=== PATIENT | female | born 1935 | race Caucasian/White ===

== ENCOUNTER → 2023-12-26 07:47 | Outpatient (REF) | payer MEDICARE, SELFPAY ==
[2023-12-26 08:38] LABS: % Basophils 0.6 % (0-2); % Eosinophils 6.4 % (0-6); % Immature Granulocytes 0.3 % (0-0.5); % Lymphocytes 32.2 % (20.5-51.1); % Monocytes 6.7 % (1.7-9.3); % Neutrophils 53.8 % (42.2-75.2); Absolute Eosinophils 0.4 10^3/uL (0-0.7); Absolute Lymphocytes 2.1 10^3/uL (1.2-3.4); Absolute Monocytes 0.4 10^3/uL (0.1-0.6); Absolute Neutrophils 3.4 10^3/uL (1.4-6.5); Hematocrit 48.1 % (37.0-47.0); Hemoglobin 15.9 g/dL (12.0-16.0); Mean Corp Hgb Conc. 33.1 g/dL (33.0-37.0); Mean Corpuscular Hgb 28.9 pg (27.0-31.0); Mean Corpuscular Volume 87.5 fL (81.0-99.0); Mean Platelet Volume 10.3 fL (7.4-10.4); Nucleated Red Blood Cells % 0 %; Platelet Count 232 10^3/uL (130-400); Red Cell Dist. Width 14.2 % (11.5-14.5); White Blood Cell Count 6.4 10^3/uL (4.8-10.8)
[2023-12-26 09:09] LABS: ALT (SGPT) 30 U/L (0-35); AST (SGOT) 38 U/L (14-36); Albumin 4.2 g/dl (3.5-5.0); Alkaline Phosphatase 95 U/L (38-126); Blood Urea Nitrogen 14 mg/dl (7-17); Calcium 9.4 mg/dl (8.4-10.2); Carbon Dioxide 25 mmol/L (22-30); Chloride 108 mmol/L (98-107); Glucose 105 mg/dl (70-99); Potassium 4.3 mmol/L (3.5-5.1); Sodium 141 mmol/L (135-145); Total Bilirubin 0.7 mg/dl (0.2-1.3); Total Protein 6.7 g/dl (6.3-8.2); eGFR > 60.00
== END ==
LOC: REG 07:47
PROVIDERS: ATTENDING PHYSICIAN Internal Medicine
DX: F03.90 Unspecified dementia, unspecified severity, without behavioral disturbance, psychotic disturbance, mood disturbance, and anxiety (principal); E03.9 Hypothyroidism, unspecified
CPT/HCPCS: 36415; 80053; 84443; 85025

== ENCOUNTER 2023-12-30 23:15 | Inpatient (IN) | payer MEDICARE, SELFPAY ==
[2023-12-30 21:07] VITALS: BMI 27.1
[2023-12-30 21:10] VITALS: BP 125/109
[2023-12-30 21:49] LABS: % Basophils 0.5 % (0-2); % Eosinophils 0.8 % (0-6); % Immature Granulocytes 0.3 % (0-0.5); % Lymphocytes 10.1 % (20.5-51.1); % Neutrophils 86.3 % (42.2-75.2); Absolute Basophils 0.1 10^3/uL (0-0.2); Absolute Eosinophils 0.1 10^3/uL (0-0.7); Absolute Lymphocytes 1.2 10^3/uL (1.2-3.4); Absolute Monocytes 0.2 10^3/uL (0.1-0.6); Absolute Neutrophils 9.9 10^3/uL (1.4-6.5); Hematocrit 44.7 % (37.0-47.0); Hemoglobin 15.4 g/dL (12.0-16.0); Mean Corp Hgb Conc. 34.5 g/dL (33.0-37.0); Mean Corpuscular Hgb 29.3 pg (27.0-31.0); Mean Corpuscular Volume 85.1 fL (81.0-99.0); Mean Platelet Volume 10.5 fL (7.4-10.4); Nucleated Red Blood Cells % 0 %; Platelet Count 202 10^3/uL (130-400); Red Blood Cell Count 5.25 10^6/uL (4.20-5.40); White Blood Cell Count 11.4 10^3/uL (4.8-10.8)
[2023-12-30 21:53] LABS: Urine Albumin Negative (Neg - Trace); Urine Bilirubin Negative (Negative); Urine Character Clear (Clear); Urine Color Yellow; Urine Glucose Negative (Negative); Urine Ketone Negative (Negative); Urine Leukocyte 2+ (Negative); Urine Nitrite Negative (Negative); Urine Occult Blood Negative (Negative); Urine Specific Gravity 1.015 (<1.030); Urine Urobilinogen Negative (Neg - 1+)
[2023-12-30 22:00] LABS: Lactic Acid 2.8 mmol/L (0.7-2.0)
[2023-12-30 22:02] VITALS: BP 92/75
[2023-12-30 22:06] LABS: ALT (SGPT) 31 U/L (0-35); AST (SGOT) 46 U/L (14-36); Alkaline Phosphatase 116 U/L (38-126); Blood Urea Nitrogen 16 mg/dl (7-17); Calcium 9.2 mg/dl (8.4-10.2); Carbon Dioxide 18 mmol/L (22-30); Chloride 105 mmol/L (98-107); Glucose 157 mg/dl (70-99); Potassium 3.9 mmol/L (3.5-5.1); Sodium 134 mmol/L (135-145); Total Bilirubin 0.6 mg/dl (0.2-1.3); Total Protein 6.4 g/dl (6.3-8.2); eGFR > 60.00
[2023-12-30 22:07] LABS: Urine Bacteria Few (Negative); Urine Red Blood Cell 0-2 /HPF (0-2); Urine Squamous Cell 16-20 /LPF (Few); Urine Urothelial Cell 0-2 /LPF (FEW); Urine White Cell 26-30 /HPF (0-5)
[2023-12-30 22:11] LABS: COVID-19 Antigen Negative (Negative)
[2023-12-30 22:16] LABS: NT-proBNP 3940 pg/ml; Troponin I 0.044 ng/ml
[2023-12-30] MEDS: ATIVAN 0.5 MG IV (22:21)
[2023-12-30] MEDS: MAXIPIME 1000 MG IV (22:22)
[2023-12-30] MEDS: NSS 1000 IV (22:32)
--- NOTE | 2023-12-30 22:40 | HPS.HSE ---
Family Physician
-
Family Physician:
Chief Complaint
-
Rigors, nausea, vomiting, hypoxia
History of Present Illness
88-year-old female from home by EMS complaining of nausea, vomiting and chills with temp of 99.8 acute onset at 815 this evening per . she was noted to be hypoxic at 83% on room air on arrival to ER. She has history of dementia advanced.
Her states she has not had any recent illness no cough, chest pain, abdominal pain, diarrhea, fever, urinary symptoms. He said sometimes she forgets and goes to the bathroom several times due to her dementia. She currently is resting
comfortably with 6 L of nasal cannula oxygen in place she denies headache or chest pain.
PMH colitis/diverticulitis October 2022, UTI, senile dementia with agitation behavioral disturbances, hypothyroidism, hypokalemia, former smoker quit over 30 years ago per
Medical History
Past Medical History
Past Medical History: Reports Other
Additional Past Medical History:
Senile Dementia with agitation behavioral disturbance
Hypothyroidism
colitis/diverticulitis October 2022
UTI's
former smoker quit over 30 years ago per
Past Surgical History: Reports Other
Additional Past Surgical History:
Cholecystectomy
MAGDALENA / BSO
Eye Surgery
Social History
Unable to obtain full social history at this time due to: Dementia
Tobacco: Former Smoker (Quit 30 years ago)
Alcohol: None
Drug: None
Personal:
Living: With Family ()
Employment: Retired
Family History
Family History: Unable to Obtain
Allergies / Home Medications
Allergies reflects when Allergies were last updated in [facility].
Home Medications with original date entered in [facility]
Allergy/Medication List:
Allergies
Allergy/AdvReac Type Severity Reaction Status Date / Time
No Known Allergies Allergy Unverified 11/19/17 09:27
Home Medications
levothyroxine 50 mcg tablet 50 mcg PO HS Thyroid 02/05/21
quetiapine 25 mg tablet 25 mg PO HS 12/30/23
Review of Systems
-
History Source: Patient and Family ( and son at bedside)
A 12 point ROS was completed and negative except as noted: Yes
Constitutional: Reports Chills
EENT: Denies Sore Throat or Runny Nose
Respiratory: Reports Other (Hypoxia); Denies Cough
Cardiac: Denies Chest Pain, Diaphoresis, Palpitations or Syncope
Abdomen/GI: Reports Nausea and Vomiting; Denies Abdominal Pain, Diarrhea, Constipated, Bloody Stools or Black Stools
: Denies Frequency, Flank Pain or Incontinence
Musculoskeletal: Denies Joint Pain or Edema
Skin: Denies Itching or Rash
Neurological: Denies Dizzy, Headache or Weakness
Endocrine: Reports No Symptoms
Hematologic/Lymphatic: Reports No Symptoms
Psych: Reports Calm
Physical Exam
Vital Signs
Vital Signs
Temp Pulse Resp BP Pulse Ox
99.8 F 113 15 125/109 93
12/30/23 21:10 12/30/23 21:10 12/30/23 21:10 12/30/23 21:10 12/30/23 21:53
Physical Exam
General: Comfortable and Conversant; No Pain or Fever
HEENT: NormoCephalic, Anicteric, PERRLA, [place] Conjunctivae, No Ptosis and Oxygen (6 L nasal cannula)
Respiratory: Clear; No Wheezes, Rales or Rhonchi
Cardiac: S1/S2 and Regular Rhythm; No Murmur, Rub, Gallop, Peripheral Edema or JVD
Breast: Deferred by me
GI: Soft, Non Tender, Non Distended, Normal Bowel Sounds and No Hepatosplenomegaly
Rectal: Deferred by Provider
Genito-urinary: No costovertebral tender
Musculoskeletal: No Clubbing, No Cyanosis and No Edema
Skin: Warm and Dry; No Rash or Jaundice
Neuro: Awake, Alert, Oriented (To name, and son but not year or history) and No Sensory Deficits; No Slurred Speech, Facial Droop, Tremors or Sedated
Psych: Calm
Laboratory Results
-
12/30/23 21:36
12/30/23 21:36
Laboratory Results
Lactic Acid 2.8 mmol/L (0.7-2.0) H 12/30/23 21:36
Total Bilirubin 0.6 mg/dl (0.2-1.3) 12/30/23 21:36
AST 46 U/L (14-36) H 12/30/23 21:36
ALT 31 U/L (0-35) 12/30/23 21:36
Alkaline Phosphatase 116 U/L (38-126) 12/30/23 21:36
Troponin I 0.044 ng/ml H* 12/30/23 21:42
Data Reviewed
-
Diagnostic Radiology: Report Reviewed by me
Lab Data: Labs Reviewed by me
Impression/Plan
-
Impression/plan:
Admit to IMU
#Acute hypoxic respiratory failure 2/2 possible new onset CHF, concern for possible PE versus PNA
83% RA, 93% 6 L nasal cannula
HR 113, 99.8 F, 125/109>106/64 post IV Ativan
BNP 3940
WBC 11.4 with left shift, lactic acid 2.8
COVID/flu negative-negative
-Follow urine culture, blood cultures x 2
-IV Lasix 20 mg now
-IV Rocephin, Zithromax
-CT PE study
-Follow CBC, CMP
CXR: No acute disease of the chest, moderate elevation right hemidiaphragm
#Nonischemic myocardial injury with new LBBB
Troponin 0.044, will trend
-Check 2D echo
EKG: Sinus tach 106 bpm, LBBB, QTc 520 MS in setting of LBBB
#Hx UTIs
UA positive leukocytes, WBC 26�30, few bacteria-asymptomatic
-Check urine culture
#History advanced dementia with agitation behavioral disturbances
Patient is oriented to name and son
-Patient got IV Ativan 0.5 mg in ER
-Continue Seroquel 25 mg at bedtime
-Fall precautions
#Hypothyroidism
-Continue levothyroxine 50 mcg at bedtime
Check TSH with free T4 reflex
#Hx colitis/diverticulitis October 2022
DNR per son at bedside
[2023-12-30 22:53] VITALS: BP 106/64
--- NOTE | 2023-12-30 22:54 | ED.GENMED ---
History of Present Illness
General
Chief Complaint: Breathing Problem
Source: patient, spouse, family and ambulance crew
Exam Limitations: dementia
Time Seen by Provider: 12/30/23 21:14
Travel History
Have you had any contact with someone who has COVID-19?: No
Do you have any symptoms of coronavirus? Fever > 100 degrees, chills, cough, shortness of breath, sore throat, loss of taste or smell, muscle aches, or headache?: No
History of Present Illness
History of Present Illness:
88-year-old female presents the emergency department complaining of nausea and vomiting, chills. Oxygen saturation 80% on room air. No oxygen use at home. She has dementia and history is limited.
Past History
Past History
ED Past Medical History: HTN, Hypothyroidism and Other (mild dementia)
ED Past Surgical History: Cholecystectomy, Gynecological (Hysterectomy) and Tonsilectomy
Social History
Tobacco: Non-smoker
Personal:
Living: with family
Review of Systems
Review of Systems
Allergies reviewed?: Yes
All Other Systems: Not applicable
Constitutional: Reports fever
EENT: Reports no symptoms
Respiratory: Reports no symptoms
Cardiac: Reports no symptoms
ABD/GI: Reports abdominal pain and vomiting
: Reports no symptoms
Musculoskeletal: Reports no symptoms
Skin: Reports no symptoms
Neurological: Reports no symptoms
Endocrine: Reports no symptoms
Hematologic/Lymphatic: Reports no symptoms
Psychiatric: Reports no symptoms
Phy Exam
Physical Exam
Physical Exam:
Physical Exam
General: Temperature 99.8
Neck: supple. no meningeal signs. normal posterior pharynx
Heart: s1/s2 tachycardia, no murmur. equal radial
pulses.
HEENT: Pupils equal round reactive to light, EOMI
Lungs: no acute respiratory distress. clear bilaterally
Abdomen: normal bowel sounds. not tender. no CVAT
Neuro: alert and oriented to person. no focal neurological deficits cranial nerves II through XII intact
Skin: no rash
Psychiatric: well kept. interactive and cooperative
Extremities: no edema. no calf tenderness. negative homans. good distal pulses
Scores
Heart Failure Risk
Heart Failure Risk Score: Yes
History of Stroke or TIA: No
History of intubation for respiratory distress: No
Heart rate on ED arrival >/= 110: Yes
SaO2 <90% on arrival on room air: Yes
HR >/=110 during 3min walk test (or too ill to perform test): Yes
ECG has acute ischemic changes: No
Urea >/=12mmol/L (BUN 33.6mg/dL): No
Serum CO2>/=35mmol/L: No
Troponin I or T elevated to AL Level (0.4mg/dL): No
NT-proBNP >/=5,000ng/L (5,000pg/ml): No
HF Risk Score: 3
Admission Status: HIGH RISK 15.9% Consider SNF treatment or admission to hospital
Course
Orders/Labs/Results
Orders:
Orders
12/30/23 21:16
Electrocardiogram (*1) Urgent
Reason for Study: Other
Other Reason for Exam: Possible Sepsis
Cardiac Monitoring- Treatment ONCE
EKG- Treatment ONCE
IV Insert/Care/Rem.- Treatment PRN
Straight cath- Treatment ONCE
O2 Therapy [RESP] Urgent
Titrate/Wean O2 to maintain O2 sat greater than (%): 93
Special Instructions: TO MAINTAIN CONTINUOUS O2 SATS > OR = 93%
Pulse Ox/cont/shift [RESP] Urgent
Quantity: 1
Special Instructions: CONTINUOUS
12/30/23 21:24
CR Chest Portable - 1 View Urgent
Comment:
Reason For Exam: fever, hypoxia
Reason Study Needs to be Portable: Patient Unstable
12/30/23 21:36
COVID-19 Antigen Urgent
Source: Nasal Swab
Complete Blood Count/With Diff Urgent
Comprehensive Metabolic Panel Urgent
Lactic Acid Q4H
Comment: ON ICE, CANCEL 2ND ORDER IF FIRST LACTIC ACID LEVEL <2
Urinalysis Reflex To Culture Urgent
Date Specimen was Collected: 12/30/23
Time Specimen was Collected: 21:16
Urine Microscopic Reflex Cult Urgent
Blood Culture Q30M
ALIE Source: Blood/Venous
Specimen Description:
Comment: FROM 2 SEPARATE SITES
Blood Culture Q30M
ALIE Source: Blood/Venous
Specimen Description:
Comment: FROM 2 SEPARATE SITES
Influenza A+B Rapid Molecular Urgent
ALIE Source: Nasal Swab
Specimen Description:
Urine Culture Urgent
ALIE Source: U
Specimen Description:
Date Specimen was Collected: 12/30/23
Time Specimen was Collected: 21:16
12/30/23 21:42
NT-proBNP Urgent
Troponin I Urgent
12/30/23 22:15
Cefepime HCl [Maxipime] 1,000 mg IV NOW STA
Lorazepam [Ativan] 0.5 mg IV NOW STA
12/30/23 22:23
0.9% Sodium Chloride 1000 ml [Nss] 1,000 ml IV BOLUS
12/30/23 23:00
Flush (0.9% Sodium Chloride) [Flush (Nss)] See Dose Instructions IV PER PROTOCOL
12/30/23 23:03
CT Chest Pe Study Urgent
Comment:
Reason For Exam: PE
Furosemide [Lasix] 20 mg IV NOW STA
12/30/23 23:04
Aspirin Chewable [Low Strength Aspirin] 324 mg PO NOW STA
12/30/23 23:15
Admit/Transfer Patient As Directed
Co-Sign Provider:
Level of Care: Inpatient admission
Assign to:: IMU- Intermediate Care
Physician / Group: victor manuel ceballos
Diagnosis: hypoxic resp failure concern new chf/poss asp pna, new LBBb, trop elev
Reason for Hospitalization: hypoxic resp failure concern new chf/poss asp pna, new LBBb, trop elev
Expected length of stay greater than two midnights?: Yes
ELOS- Estimated Length of Stay in days: 4
I certify the patient meets the requirements for IP care: Yes
Code Status As Directed
Resuscitation Status: Do not resuscitate
Reached after discussion with pt or family/Healthcare POA: Yes
Based on pt advanced directive or healthcare POA form: Yes
Decision communicated with: Per son at bedside
DNR Bracelet Application ONCE
12/30/23 23:16
Azithromycin 500 mg/250 ml [Zithromax Infusion] 500 mg in 250 ml IV NOW
12/31/23 00:00
Troponin I Q6H
12/31/23 01:30
Lactic Acid Q4H
Comment: ON ICE, CANCEL 2ND ORDER IF FIRST LACTIC ACID LEVEL <2
12/31/23 06:00
EKG [Electrocardiogram (*1)] IN AM
Reason for Study: Abnormal EKG
Echo 2D MMode Color/Doppler IN AM
Reason for Study: hypoxia ? chf
Lipid Profile [Cardiovascular Evaluation] IN AM
TSH Reflex To Free T4 IN AM
Troponin I Q6H
12/31/23 22:00
Azithromycin 500 mg/250 ml [Zithromax Infusion] 500 mg in 250 ml IV Q24H
Abnormal Lab Results
12/30/23 12/30/23
21:36 21:42
WBC 11.4 H 10^3/uL
(4.8-10.8)
MPV 10.5 H fL
(7.4-10.4)
Absolute Neuts (auto) 9.9 H 10^3/uL
(1.4-6.5)
Neutrophils % 86.3 H %
(42.2-75.2)
Lymphocytes % 10.1 L %
(20.5-51.1)
Sodium 134 L mmol/L
(135-145)
Carbon Dioxide 18 L mmol/L
(22-30)
Glucose 157 H mg/dl
(70-99)
Lactic Acid 2.8 H mmol/L
(0.7-2.0)
AST 46 H U/L
(14-36)
Troponin I 0.044 H* ng/ml
Leukocyte Esterase Rfl 2+ A
(Negative)
Urine WBC (Reflex) 26-30 A /HPF
(0-5)
Urine Bacteria (Reflex) Few A
(Negative)
12/30/23 21:36
12/30/23 21:36
Vital Signs
Initial and Last Documented VS:
Initial Vital Signs
Temp Pulse Resp BP Pulse Ox
99.8 F 113 15 125/109 83
12/30/23 21:10 12/30/23 21:10 12/30/23 21:10 12/30/23 21:10 12/30/23 21:10
Last Documented Vital Signs
Temp Pulse Resp BP Pulse Ox
99.8 F 113 15 125/109 93
12/30/23 21:10 12/30/23 21:10 12/30/23 21:10 12/30/23 21:10 12/30/23 21:53
MDM/Problems Addressed
Differential Diagnosis Includes:
Sepsis, pneumonia, CHF, UTI
MDM/Problems Addressed:
88-year-old female with nausea vomiting, UTI. Hypoxia, unclear etiology. Possibly related to underlying COPD. Admit to hospitalist.
Chronic conditions affecting care: HTN
Acute Exacerbation and/or Progression of Chronic Illness: HTN
*Radiology
Radiology exam reviewed: radiology read reviewed (Chest x-ray no acute findings)
*Pulse Oximetry
Patient hypoxic: yes
*EKG
Interpreted by ED Provider?: Yes
EKG Intrepretation Date: 12/30/23
EKG Intrepretation Time: 21:38
Interpretation: abnormal
Comparison EKG: changes noted
Heart Rate: 106
Rate: tachycardiac
Rhythm: sinus
Abbott: left axis deviation
Interval: normal interval
QRS Pattern: left bundle branch block
Ischemia: no ischemia
*Real Estate Specialist Interpretation
Rate: tachycardiac
Interpretation: abnormal
Heart Rate: 102
Rhythm: sinus tachycardia
*Critical Care Note
Total Time (30-74mins, 75-104mins- exclusive of procedures): Not Applicable
Data Reviewed
Review of Other/Old Records Reveals: Labs (no prior bnp)
Patient Management
Social determinants of health affecting care: Living situation and Strong social support
Discussion with other providers: Hospitalist
Escalation/DeEscalation of care consider admission/obs:
admit indicated
ED Attending Note
-
Portions of this chart may have been created with voice recognition software.� Occasional wrong word or��sound alike� substitutions may have occurred due to the inherent limitations of voice recognition software.
Discharge Plan
Departure
Patient Disposition: Admit
Date of Disposition: 12/30/23
Time of Disposition: 22:25
Admit to: IMU
Presentation/result/management discussed w/ accepting MD/DO: Hospitalist
Patient with high blood pressure during this ER visit?: No
Condition: Fair
Discharge Problem:
Urinary tract infection, Hypoxia
Prescriptions:
No Action
levothyroxine 50 MCG tablet
50 mcg PO HS
quetiapine 25 mg tablet
25 mg PO HS
Interventions
Interventions:
ED- Fall Risk Assessment Last Done: 12/30/23 21:55
ED- Cardiac Assessment Last Done: 12/30/23 21:55
ED- Pulmonary Assessment Last Done: 12/30/23 21:53
Discharge Date and Time
Print Language: LAO
[2023-12-30 23:00] VITALS: BP 108/62
[2023-12-30] MEDS: LASIX 20 MG IV (23:44)
[2023-12-30] MEDS: LOW STRENGTH ASPIRIN 324 MG PO (23:44)
[2023-12-30] MEDS: ZITHROMAX INFUSION 250 IV (23:45)
[2023-12-31] VITALS (39 sets, daily range): BP systolic 65–142; BP diastolic 46–88
--- NOTE | 2023-12-31 00:59 | W.PN.UPDATE ---
Update Note
Progress Note Update
This is a 78-year-old with past medical history significant for dementia, hypothyroidism, behavioral disturbance, hypertension who developed chills,nausea and one episode of vomiting just hours prior to coming to ED. She had otherwise been in usual
state of health. Recently started quetiapine but otherwise no other changes. Given dementia, patient unable to provide history. Per family is mostly bed bound but is alert and communicative. No recent episodes of dizziness, falls, lower
extremity swelling or shortness of breath. No known sick contacts. Former smoker, quit over 30 years ago. No prior admissions for COPD.
Low grade temps in ED, she was markedly hypoxic requiring 6 L NC. Hemodynamically stable and alert. ECG with new LBBB and trop is abnormal at 0.4. Chest Xray without infiltrates or clear edema. BNP is elevated over 3000. There is slight
leukocytosis and mild lactic acidosis. Given 1 L NS in ED. Suspected to have UTI. negative COVID and influenza.
Hypoxia - With low grade temps and acute hypoxia, suspect early pneumonia not seen on xray yet. Cannot rule out PE. Obtain CT PE. Start Ceftriaxone/Azithromycin. Check procalcitonin. Supportive care with supplemental oxygen. She is alert and
communicative shows no signs of hypercarbic respiratory failure.
Trop Elevation - Trop 0.04. Elevated BNP. New Left bundle. No chest pain. NSTEMI vs demand ischemia in setting of hypoxia. Aspirin 324 x 1, cycle enzymes, telemetry. Heparin for rising trop while pending CT/PE. Echo and cardiology consult in
am.
CHF - possible CHF with elevated trop and hypoxia. Xray without pulmonary edema and no jvd or peripheral edema on exam. CT chest as above. Trial of lasix 20mg iv x 1. Echo in am. Cardiology consult.
Dementia - continue seroquel for now. Given ativan in ED which appeared to have helped
UTI - u/a is equivocal with numerous squamous cells likey contaminated. Repeat u/a for clean sample and send for urine cultures. Blood cultures if she spikes a fever.
DNR/DNI
[2023-12-31] MEDS: SEROQUEL 25 MG PO ×2 (01:34→20:00)
[2023-12-31] MEDS: NSS (PRESERVATIVE FREE) 0.25 ML IV (01:34)
[2023-12-31] MEDS: ATIVAN 0.5 MG IV (01:34)
[2023-12-31 02:21] LABS: Lactic Acid 0.8 mmol/L (0.7-2.0)
[2023-12-31] MEDS: HEPARIN 25000 UNITS/250 ML IV (03:02)
--- NOTE | 2023-12-31 03:20 | ED TECH ---
POST VOID BLADDER SCAN 477ml AT 0321 12/31/23.
--- NOTE | 2023-12-31 03:38 | EDRN ---
Patient had climbed out of the bed while both siderails were up. Patient had taken off diaper, purwick, gown, and all equipment except the heart monitor. Patient incontinent of large amount of urine in diaper and floor as assisting patient to the
bathroom unable to hold bladder. Cleaned the patient and changed the linens and gown. Warm blankets provided. Patient fell asleep immediately
[2023-12-31 03:50] LABS: APTT 27.7 Sec (23.4-35.0)
[2023-12-31] MEDS: NSS 250 IV (04:22)
[2023-12-31 06:25] LABS: % Basophils 0.7 % (0-2); % Eosinophils 0.4 % (0-6); % Immature Granulocytes 0.4 % (0-0.5); % Lymphocytes 22.6 % (20.5-51.1); % Monocytes 7.6 % (1.7-9.3); % Neutrophils 68.3 % (42.2-75.2); Absolute Lymphocytes 1.2 10^3/uL (1.2-3.4); Absolute Monocytes 0.4 10^3/uL (0.1-0.6); Absolute Neutrophils 3.7 10^3/uL (1.4-6.5); Mean Corp Hgb Conc. 34.2 g/dL (33.0-37.0); Mean Corpuscular Hgb 29.7 pg (27.0-31.0); Mean Platelet Volume 10.4 fL (7.4-10.4); Nucleated Red Blood Cells % 0 %; Platelet Count 175 10^3/uL (130-400); Red Blood Cell Count 4.37 10^6/uL (4.20-5.40); Red Cell Dist. Width 14.3 % (11.5-14.5); White Blood Cell Count 5.4 10^3/uL (4.8-10.8)
[2023-12-31 07:17] LABS: TSH Reflex To Free T4 0.64 uIU/ml (0.47-4.68)
[2023-12-31 07:29] LABS: APTT > 200 Sec (23.4-35.0)
[2023-12-31] MEDS: ROCEPHIN 2000 MG IV (09:05)
[2023-12-31] MEDS: STERILE WATER FOR INJECTION 20 ML IV (09:05)
[2023-12-31 09:27] LABS: ALT (SGPT) 35 U/L (0-35); AST (SGOT) 54 U/L (14-36); Alkaline Phosphatase 78 U/L (38-126); Blood Urea Nitrogen 13 mg/dl (7-17); Calcium 7.6 mg/dl (8.4-10.2); Carbon Dioxide 23 mmol/L (22-30); Chloride 110 mmol/L (98-107); Estimated Creatinine Clearance 44 ml/min; Glucose 108 mg/dl (70-99); HDL Cholesterol 38 mg/dl; LDL Cholesterol, Calculated 50 mg/dl; Potassium 3.8 mmol/L (3.5-5.1); Sodium 136 mmol/L (135-145); Total Bilirubin 0.5 mg/dl (0.2-1.3); Total Cholesterol 102 mg/dl (50-199); Total Protein 5.3 g/dl (6.3-8.2); Triglyceride 70 mg/dl (10-149); Very Low Density Lipoprotein 14 mg/dl (0-30); eGFR > 60.00
--- NOTE | 2023-12-31 09:36 | PTCARENOTE ---
Patient admitted to ICU as IMU overflow. Patient is alert to person only, believes we are in school, very pleasant, cooperative. NSR with LBBB on the monitor. 98% on RA. Abdomen soft, non-tender. Patient assisted to BSC for elimination needs. Assist
x1. Heparin on hold per protocol. Patient offers no complaints at this time.
--- NOTE | 2023-12-31 10:41 | PTOTSP ---
Speech Therapy Assessment
Oral/pharyngeal swallow deemed within functional limits without overt signs of aspiration during bedside assessment
Recommend
1. Continue regular solids and thin liquids
2. Meds as tolerated.
3. Skilled ST not indicated
--- NOTE | 2023-12-31 11:59 | CON.CAR ---
Addendum entered and electronically signed by Brice Valadez MD 12/31/23 14:20:
88 yo female with advanced dementia, no cardiac history admitted with nausea, chills. Was also hypoxic. Being treated for sepsis, unclear source, possible UTI. Exam with RRR, no murmurs, no edema. EKG: NSR, LBBB (new). TnI peak 1.87.
We are consulted for elevated troponin and new LBBB. She has no chest pain, and confirms this. She is on ASA/heparin as we trend troponin, although I doubt ACS.
Possibly acute non-ischemic myocardial injury in setting of sepsis. We will check echo this admission.
Original Note:
Consultation
Consultation Request
Date/Time Consultation Requested: 12/31/2023 0800
Date/Time Consultation Performed: 12/31/2023 1130
Requesting Provider: Dr. Govea
Performing Provider:
Reason for Consultation: abnormal troponin
Medical History
-
Chief Complaint: nausea, vomiting, chills, hypoxia
History of Present Illness:
88-year-old woman with history of dementia who lives with her family who was brought to the emergency room with complaints of nausea vomiting and chills. In the emergency room she was noted to be hypoxic with a room air saturation of 83%. Patient
was initially placed on 6 L nasal cannula. O2 sats improved. Troponin was abnormal with a peak of 1.870. Patient also noted to have a left bundle branch block on EKG which was new since a previous EKG from 10/29/2022. Patient denies any
complaints of chest pain shortness of breath or palpitations. Cardiology is consulted for further evaluation. Patient currently denies any chest pain symptoms.
Past Medical History
Past Medical History: Other (Colitis/diverticulitis 10/2022, UTI, dementia with agitation behavioral disturbances, hypothyroidism, hypokalemia, )
Past Surgical History: Other (MAGDALENA/BSO, eye surgery, cholecystectomy per chart)
Social History
Tobacco: Former Smoker (Patient quit over 30 years ago per chart)
Alcohol: None
Family History
Family History: Unable to Obtain (Patient unsure)
Allergies / Home Medications
Allergy/AdvReac Type Severity Reaction Status Date / Time
No Known Allergies Allergy Unverified 07/10/17 09:27
�Medication �Instructions �Recorded �Confirmed �Type
levothyroxine 50 mcg tablet 50 mcg PO HS Thyroid 02/05/21 12/30/23 History
quetiapine 25 mg tablet 25 mg PO HS 12/30/23 12/30/23 History
Review of Systems
-
Unable to obtain full review of systems at this time due to: Dementia
History Source: Patient
Constitutional: No Symptoms
EENT: No Symptoms
Respiratory: No Symptoms
Cardiac: No Symptoms
Abdomen/GI: No Symptoms
Neurological: No Symptoms
Physical Exam
Vital Signs
Temp Pulse Resp BP Pulse Ox
99.8 F 72 23 99/58 98
12/30/23 21:10 12/31/23 09:02 12/31/23 09:02 12/31/23 08:00 12/31/23 09:34
Lab Results
12/31/23 06:08
12/31/23 06:08
Troponin I 1.870 ng/ml H* D 12/31/23 06:08
Pjo-E-Adtcrnxneru Pept 3940 pg/ml 12/30/23 21:42
Physical Exam
General: Well Developed, Well Nourished and No Apparent Distress
HEENT: Normocephalic and Moist Mucous Membranes
Respiratory: Crackles (bilat )
Cardiac: S1/S2 and Regular Rhythm
Breast: Deferred by me
GI: Soft, Non Distended and Normal Bowel Sounds
Musculoskeletal: No Edema
Skin: Warm and Dry
Neuro: Awake and Alert (forgetful)
Psych: Calm
Impression / Plan
-
Elevated troponin type unknown :
-In setting of new left bundle branch block. Patient currently asymptomatic.
-Update echocardiogram
-BP will likely limit beta-leta at this time. On IV heparin, add asa
-Continue to trend troponin.
-LDL 50
Left bundle branch block:
-New compared to prior EKGs from October 2022. Patient currently denies cardiac symptoms.
Hypoxia:
-Improving. CT of the chest without pulmonary embolus
-BNP was 3940, lasix was given.
-con't rales on exam , but hypoxia improved. Con't ,monitor need for further lasix .
Dementia:
-Per primary team
-
Hypothyroidism:
-On levothyroxine
Data Reviewed
-
EKG: Tracing Personally Visualized and interpreted (NSR 89 bpm, LBBB )
CT Scan: Report Reviewed by me (CT chest 12/31/23 No CTA evidence for an acute pulmonary thromboembolism. 2. Bilateral groundglass opacities favored to be secondary to hypoventilatory changes and atelectasis. 3. 8 mm solid pulmonary nodule in the
superior segment of the left lower lobe partially obscured by atelectasis. Recommend)
Labs: Labs Reviewed by me
--- NOTE | 2023-12-31 12:25 | W.PN.HOSP.TC ---
Today's Communication/Plan
-
monitor vitals
see plan
cw hep gtt
monitor o2 status
monitor BP
on Aspirin
cw abx for now
Son updated over the phone
Assessment / Plan
Assessment / Plan
General: Comfortable and Conversant; No Pain or Fever
HEENT: NormoCephalic, Anicteric, PERRLA
Respiratory: Clear; No Wheezes, Rales or Rhonchi
Cardiac: S1/S2 and Regular Rhythm
GI: Soft, Non Tender, Non Distended, Normal Bowel Sounds
Genito-urinary: No costovertebral tender
Musculoskeletal: No Edema
Neuro: Awake, Alert, Oriented (To name, and son but not year or history)
Psych: Calm
Acute hypoxic respiratory failure 2/2 possible atelectasis and NSTEMI
Initially required 6 L nasal cannula, now on room air
BNP 3940 however does not appear to be fluid overload; was liven IV Lasix on admission however patient went hypotensive
Lactic acidosis, now improved
COVID/flu negative-negative
-Follow urine culture, blood cultures x 2
-IV Rocephin, Zithromax for now
-CT PE study neg for PE; bilateral groundglass opacity with possible secondary to atelectasis. 8 mm solid pulmonary nodule in the superior segment of the left lower lobe. Repeat CT in 6 to 12 months.
-Follow CBC, CMP
Suspect severe sepsis secondary to urinary tract infection
Follow urine culture
Continued antibiotics
NSTEMI
trend trop
cw heparin gtt
cardiology evaluation
echo
Added aspirin
#Nonischemic myocardial injury with new LBBB
trop now 1.8
-Check 2D echo
EKG: Sinus tach 106 bpm, LBBB, QTc 520 MS in setting of LBBB
#Hx UTIs
UA positive leukocytes, WBC 26�30, few bacteria-asymptomatic
-Check urine culture
#History advanced dementia with agitation behavioral disturbances
Patient is oriented to name and son
-Continue Seroquel 25 mg at bedtime
-Fall precautions
#Hypothyroidism
-Continue levothyroxine 50 mcg at bedtime
#Hx colitis/diverticulitis October 2022
DVTppx
hep gtt
DNR per son at bedside
I spent a total of 52 minutes with the patient or on the floor. More than 50% of this time involved counseling and coordination of care.
Anticipated Discharge: > 48 hours
Subjective/Interval History
-
Date of Service: December 31, 2023
denies pain
Objective Data
-
Labs:
Laboratory Results
12/31/23 12/31/23 12/31/23
03:18 06:08 12:00
WBC 5.4
Hgb 13.0
Hct 38.0
Plt Count 175
APTT 27.7 > 200 H* Cancelled
Sodium 136
Potassium 3.8
Chloride 110 H
Carbon Dioxide 23
BUN 13
Creatinine 0.8
Glucose 108 H
Calcium 7.6 L D
Total Bilirubin 0.5
AST 54 H
ALT 35
Alkaline Phosphatase 78
12/31/23 12/31/23
16:00 18:00
WBC
Hgb
Hct
Plt Count
APTT Pending Cancelled
Sodium
Potassium
Chloride
Carbon Dioxide
BUN
Creatinine
Glucose
Calcium
Total Bilirubin
AST
ALT
Alkaline Phosphatase
Vital Signs:
Vital Signs
Temp Pulse Resp BP Pulse Ox
97.6 F 72 23 99/58 98
12/31/23 12:01 12/31/23 09:02 12/31/23 09:02 12/31/23 08:00 12/31/23 09:34
I&O
12/30/23 12/31/23 01/01/24
06:59 06:59 06:59
Intake Total 100 / 100
Balance 100 / 100
--- NOTE | 2023-12-31 12:37 | PTCARENOTE ---
Assessment largely unchanged. Patient resting comfortably in bed.
[2023-12-31] MEDS: LOW STRENGTH ASPIRIN 81 MG PO (13:55)
--- NOTE | 2023-12-31 14:25 | CM ---
CM following re: discharge planning.
Reviewed pt's chart, met with t and pt's Ed at bedside.
Pt is an 88 year old female, admitted with primary dx of Sepsis secondary to UTI.
Pt is not a great historian due to Dementia, information obtained from pt's . Pt and spouse live in a split level home with threshold step to enter. Enter to rec room where half bath is located, 4 steps up to kitchen and living room level,
9 steps up to bedroom and full bathroom level of home. Pt does not have DME and is independent with her ADLs with reminders and supervision. has DME (walker, spc and raised toilet seat with rails) from prior hip surgery, but none of this
is in use currently. does all the driving and provides supervision at all times. Per pt was at [facility] and had [facility] in the past. Pt's stated he and his spouse have been for 64 years, have to children, son is a
Trauma MD Surgeon at [employer]. Per , pt's Dementia has been progressing, pt can be very difficult to manage and he is learning how to address it. Useful approaches how to care for pt with Dementia discussed, information
provided and pt's stated that it is difficult for him to redirect her and when he approaching the pt directly, pt became agitated and 'nasty'. Per , as of December the of this year, pt started on Seroquel 25 mg at HS and per it
seems working.
Per , physically pt is independent with functional ability and she needs care/supervision due to impaired memory. Per , he feels that pt will return [place]ak hoe at discharge. Pt became agitated a few times during interview, requesting 'go
home now!'.
PCP: Lupillo Mcintosh
Pharmacy: [facility] in [place]
D/C plan: Home with anticipated VN services vs no needs. Spouse to transport at discharge.
CM will follow with discharge plan updates as hospitalization progresses
--- NOTE | 2023-12-31 14:46 | PTCARENOTE ---
Patient downgraded to tele, report called to 3W RN. Patient transferred without issue.
[2023-12-31] MEDS: ZYPREXA ZYDIS (ORALLY DISINTEGRATING) 5 MG PO (15:16)
[2023-12-31 16:35] LABS: Procalcitonin 8.92 ng/ml (0.0-0.25)
[2023-12-31] MEDS: RISPERDAL M-TAB (ORALLY DISINTEGRATING) 0.5 MG PO (17:25)
[2023-12-31 18:50] LABS: APTT 22.6 Sec (23.4-35.0)
--- NOTE | 2023-12-31 19:30 | PTCARENOTE ---
Pt transferred to [facility] from [facility] in bed. Pt is confused, agitated, in B/L soft limb wrist restraints with med sitter. VSS. ST on the monitor. SYDNEE Campos notified and orders received. Pt given Seroquel and Ativan.
[2023-12-31] MEDS: ATIVAN 0.25 MG IV (19:49)
[2023-12-31] MEDS: NSS (PRESERVATIVE FREE) 0.125 ML IV (19:49)
[2023-12-31] MEDS: SYNTHROID 50 MCG PO (22:21)
[2023-12-31] MEDS: ZITHROMAX INFUSION 250 IV (22:21)
[2024-01-01] VITALS (7 sets, daily range): BP systolic 120–154; BP diastolic 74–93; PULSE 95–101; O2SAT 91
--- NOTE | 2024-01-01 01:30 | PTCARENOTE ---
Pt sleeping in intervals after medication administration. Pt remains in restraints with bed alarm and med sitter.
[2024-01-01 02:34] LABS: APTT 42.9 Sec (23.4-35.0)
--- NOTE | 2024-01-01 08:00 | PTCARENOTE ---
Pt recieved from ICU nurse with bilateral mitts on and in front of me was able to move her right hand and fingers in a way to tug at her IV on left hand. Pt was unable to redirect, pt agitated, confused, restless, angry. Pt swatted at this nurse
several times. MD aware and po zyprexia given as ordered. Pt placed on medsitter and bed alarm. I was unable to leave room. Pt found with legs on side of bed . legs placed back into bed, pt then found sitting straight up and leaning over the
bed to mess with IV pole. Then several minutes later, i found pt sitting straight up leaning over lthe right side of bed openin up all the closet doors. She was very unsafe. Md notified and bilateral wrist restraints ordered and applied. PO
risperidole ordered and given as per MD order. PT not relieved, Medsitter calling almost every 4 minutes for pt with unsafe conditions. Internally we placed pt on a one to one for better safety conditions, Md alerted and ordered a one to one.
Admission called and we were able to get pt a single room on another unit. Unit called and report given. two RNs and one tech transfered pt via bed with medsitter to 4th floor.
[2024-01-01] MEDS: LOW STRENGTH ASPIRIN 81 MG PO (08:47)
[2024-01-01] MEDS: STERILE WATER FOR INJECTION 20 ML IV (08:47)
[2024-01-01] MEDS: ROCEPHIN 2000 MG IV (08:47)
[2024-01-01 10:16] LABS: % Basophils 0.8 % (0-2); % Immature Granulocytes 0.2 % (0-0.5); % Lymphocytes 24.3 % (20.5-51.1); % Monocytes 7.3 % (1.7-9.3); % Neutrophils 66.4 % (42.2-75.2); Absolute Eosinophils 0.1 10^3/uL (0-0.7); Absolute Lymphocytes 1.3 10^3/uL (1.2-3.4); Absolute Monocytes 0.4 10^3/uL (0.1-0.6); Absolute Neutrophils 3.5 10^3/uL (1.4-6.5); Hemoglobin 14.7 g/dL (12.0-16.0); Mean Corpuscular Hgb 29.3 pg (27.0-31.0); Mean Corpuscular Volume 83.7 fL (81.0-99.0); Nucleated Red Blood Cells % 0 %; Red Blood Cell Count 5.02 10^6/uL (4.20-5.40); Red Cell Dist. Width 14.3 % (11.5-14.5); White Blood Cell Count 5.2 10^3/uL (4.8-10.8)
[2024-01-01 10:46] LABS: APTT 45.7 Sec (23.4-35.0)
[2024-01-01 10:53] LABS: Mean Platelet Volume 10.7 fL (7.4-10.4); Platelet Count 121 10^3/uL (130-400)
[2024-01-01 11:53] LABS: ALT (SGPT) 33 U/L (0-35); AST (SGOT) 61 U/L (14-36); Albumin 3.6 g/dl (3.5-5.0); Alkaline Phosphatase 76 U/L (38-126); Blood Urea Nitrogen 11 mg/dl (7-17); Calcium 8.6 mg/dl (8.4-10.2); Carbon Dioxide 27 mmol/L (22-30); Chloride 107 mmol/L (98-107); Estimated Creatinine Clearance 50 ml/min; Glucose 119 mg/dl (70-99); Potassium 3.5 mmol/L (3.5-5.1); Sodium 140 mmol/L (135-145); Total Bilirubin 0.4 mg/dl (0.2-1.3); Total Protein 6.1 g/dl (6.3-8.2); eGFR > 60.00
--- NOTE | 2024-01-01 11:54 | W.PN.HOSP.TC ---
Addendum entered and electronically signed by Juan Miguel Govea MD 01/01/24 13:30:
Son updated over the phone
Original Note:
Today's Communication/Plan
-
monitor vitals
see plan
follow urine cx
hep until ok with cardiology
echo
cw abx
psych to evaluate
monitor mental status
Assessment / Plan
Assessment / Plan
General: Comfortable and Conversant; No Pain or Fever
HEENT: NormoCephalic, Anicteric, PERRLA
Respiratory: Clear; No Wheezes, Rales or Rhonchi
Cardiac: S1/S2 and Regular Rhythm
GI: Soft, Non Tender, Non Distended, Normal Bowel Sounds
Genito-urinary: No costovertebral tender
Musculoskeletal: No Edema
Neuro: Awake, Alert
Psych: Calm
Acute hypoxic respiratory failure 2/2 possible atelectasis and NSTEMI
could be possible PNA given opacities on CT scan; procal +
Initially required 6 L nasal cannula, now on room air
BNP 3940 however does not appear to be fluid overload; was liven IV Lasix on admission however patient went hypotensive
Lactic acidosis, now improved
COVID/flu negative-negative
-Follow urine culture, blood cultures x 2
-IV Rocephin, Zithromax for now
-CT PE study neg for PE; bilateral groundglass opacity with possible secondary to atelectasis. 8 mm solid pulmonary nodule in the superior segment of the left lower lobe. Repeat CT in 6 to 12 months.
Suspect severe sepsis secondary to urinary tract infection and possible PNA
Follow urine culture
Continued antibiotics
NSTEMI vs non [place] related myocardial injury
new LBBB
trop peaked 1.8
cw heparin gtt until ok with cardiology
cardiology following
echo
Added aspirin
#History advanced dementia with agitation behavioral disturbances
no hx of trauma
suspect component of acute delirium as well
12/30 with agitation; was put on restraints
was given zyprexa,then risperidone and then ativan
psych eval
-Continue Seroquel 25 mg at bedtime
-Fall precautions
#Hypothyroidism
-Continue levothyroxine 50 mcg at bedtime
#Hx colitis/diverticulitis October 2022
DVTppx
hep gtt
DNR per son on admission
I spent a total of 53 minutes with the patient or on the floor. More than 50% of this time involved counseling and coordination of care.
Anticipated Discharge: > 48 hours
Subjective/Interval History
-
Date of Service: January 01, 2024
calm this mroning
Objective Data
-
Labs:
Laboratory Results
01/01/24 01/01/24 01/01/24
02:04 10:05 11:07
WBC 5.2
Hgb 14.7
Hct 42.0
Plt Count 121 L D
APTT 42.9 H 45.7 H
Sodium Cancelled 140
Potassium Cancelled 3.5
Chloride Cancelled 107
Carbon Dioxide Cancelled 27
BUN Cancelled 11
Creatinine Cancelled 0.7
Glucose Cancelled 119 H
Calcium Cancelled 8.6
Total Bilirubin Cancelled 0.4
AST Cancelled 61 H
ALT Cancelled 33
Alkaline Phosphatase Cancelled 76
Vital Signs:
Vital Signs
Temp Pulse Resp BP Pulse Ox
97.8 F 102 18 144/80 94
01/01/24 03:35 01/01/24 03:35 01/01/24 03:35 01/01/24 03:35 01/01/24 03:35
I&O
12/31/23 01/01/24 01/02/24
06:59 06:59 06:59
Intake Total 100 / 100 480 / 480
Balance / 480 / 480
--- NOTE | 2024-01-01 13:18 | CS.PSYCHR ---
Consult Summary - Psychiatry
-
Pt is 88 yo female brought in from home by EMS with reported nausea, vomiting and chills, onset of elevated temp 99.8 per . Pt noted to be hypoxic at 83% on room air on arrival to ED. Pt has hx of advanced dementia. Psychiatry asked to
evaluate due to agitation, tried on Zyprexa Zydis 5 mg, Risperidone 0.5 mg, Seroquel 25 mg and Ativan 0.25 mg IV, over the course of yesterday afternoon/evening. Pt noted to be confused, restless, angry, swatting at staff. QTc prolonged at 520,
515 on repeat EKG.
PMH colitis/diverticulitis October 2022, UTI, advanced dementia with agitation/behavioral disturbance, hypothyroidism, hypokalemia, former smoker quit over 30 years ago per
Psych Hx: unable to obtain, none noted apart from dementia. on Seroquel 25 mg HS
SH: lives with
MSE: alert, making eye contact, oriented only to self. No EPS evident. Mildly restless, states she is looking for her family in [place]. Unable to give an history due to dementia.
Imp: Dementia, advanced, with behavior disturbance
R/o superimposed delirium
Prolonged QTc
Rec: would continue with Risperidone and Ativan prn for agitation. could try adding Depakote, although pt has increased AST and low platelets- could be worsened on Depakote
Haldol is not advisable in setting on prolonged QTc. If pt is aggressive and refusing po meds, IM Zyprexa is still the best overall option
Can continue existing Seroquel 25 mg HS
Psychiatry will follow
--- NOTE | 2024-01-01 14:28 | W.PN.CD ---
Today's Communication / Plan
-
echo in AM
Impression / Plan
-
88 yo female with advanced dementia, no cardiac history, admitted with nausea, chills. Was also hypoxic. Being treated for sepsis, unclear source, possible UTI.
Sepsis: per primary team
Elevated troponin: peak 1.87
-In setting of new left bundle branch block. Patient currently asymptomatic. No chest pain.
-suspect acute non-ischemic myocardial injury in setting of sepsis.
-echo in AM
Left bundle branch block:
-New compared to prior EKGs from October 2022. Patient currently denies cardiac symptoms.
-echo
Dementia:
-Per primary team
-
Hypothyroidism:
-On levothyroxine
Physical Exam
Vital Signs/Labs
Vital Signs
Temp Pulse Resp BP Pulse Ox
97.7 F 101 20 139/84 91
01/01/24 07:16 01/01/24 07:16 01/01/24 07:16 01/01/24 07:16 01/01/24 07:16
12/31/23 01/01/24 01/02/24
06:59 06:59 06:59
Actual Weight 65 kg
01/01/24 10:05
01/01/24 11:07
APTT 45.7 Sec (23.4-35.0) H 01/01/24 10:05
Triglycerides 70 mg/dl (10-149) 12/31/23 06:08
LDL Cholesterol, Calc 50 mg/dl 12/31/23 06:08
VLDL Cholesterol, Calc 14 mg/dl (0-30) 12/31/23 06:08
HDL Cholesterol 38 mg/dl 12/31/23 06:08
12/30/23
21:42
Zyv-[id number]-Kprjuetyhfb Pept 3940
LAB Results
12/30/23 12/31/23 12/31/23
21:42 00:19 06:08
Troponin I 0.044 H* 1.150 H* D 1.870 H* D
12/31/23 12/31/23
12:08 12:33
Troponin I Cancelled 1.790 H*
Physical Exam
Constitutional: No acute distress and Comfortable
EENT: Moist mucous membranes
Cardiovascular: Rhythm & rate is regular, Pedal edema is absent, JVD pressure is normal and Systolic murmur absent
Respiratory: Respiratory effort normal and Lungs clear to auscul.
GI: Soft, Distention absent and Flat
Neuro/Psych: Alert
Data Reviewed
-
Date of Service: January 01, 2024
EKG: Other (Tele: SR/ST 90s-100s)
Labs: Labs Reviewed by me
[2024-01-01] MEDS: SEROQUEL 25 MG PO (21:22)
[2024-01-01] MEDS: ZITHROMAX INFUSION 250 IV (21:22)
[2024-01-01] MEDS: SYNTHROID 50 MCG PO (21:22)
[2024-01-02 03:01] VITALS: BP 115/73
[2024-01-02 07:30] VITALS: BP 133/70
[2024-01-02 07:38] LABS: % Basophils 0.8 % (0-2); % Eosinophils 4.1 % (0-6); % Immature Granulocytes 0.1 % (0-0.5); % Lymphocytes 21.9 % (20.5-51.1); % Monocytes 8.6 % (1.7-9.3); % Neutrophils 64.5 % (42.2-75.2); Absolute Basophils 0.1 10^3/uL (0-0.2); Absolute Eosinophils 0.3 10^3/uL (0-0.7); Absolute Lymphocytes 1.6 10^3/uL (1.2-3.4); Absolute Monocytes 0.6 10^3/uL (0.1-0.6); Absolute Neutrophils 4.6 10^3/uL (1.4-6.5); Hematocrit 41.7 % (37.0-47.0); Hemoglobin 14.5 g/dL (12.0-16.0); Mean Corp Hgb Conc. 34.8 g/dL (33.0-37.0); Mean Corpuscular Hgb 29.5 pg (27.0-31.0); Mean Corpuscular Volume 84.9 fL (81.0-99.0); Mean Platelet Volume 11.3 fL (7.4-10.4); Nucleated Red Blood Cells % 0 %; Platelet Count 165 10^3/uL (130-400); Red Blood Cell Count 4.91 10^6/uL (4.20-5.40); Red Cell Dist. Width 14.1 % (11.5-14.5); White Blood Cell Count 7.1 10^3/uL (4.8-10.8)
[2024-01-02 07:59] LABS: ALT (SGPT) 30 U/L (0-35); AST (SGOT) 53 U/L (14-36); Albumin 3.3 g/dl (3.5-5.0); Alkaline Phosphatase 74 U/L (38-126); Blood Urea Nitrogen 10 mg/dl (7-17); Calcium 8.5 mg/dl (8.4-10.2); Carbon Dioxide 23 mmol/L (22-30); Chloride 108 mmol/L (98-107); Estimated Creatinine Clearance 50 ml/min; Glucose 82 mg/dl (70-99); Potassium 3.3 mmol/L (3.5-5.1); Sodium 140 mmol/L (135-145); Total Bilirubin 0.6 mg/dl (0.2-1.3); Total Protein 5.7 g/dl (6.3-8.2); eGFR > 60.00
--- NOTE | 2024-01-02 08:08 | W.PN.CD ---
Addendum entered and electronically signed by Carlo Rock MD 01/02/24 10:03:
I saw and examined the patient.
The [employer] or PA's note was reviewed and I agree with the note.
hemodynamically stable. remain in await echo
No other new recommendations
Original Note:
Today's Communication / Plan
-
Echo today
Impression / Plan
-
BACKGROUND: 88F with advanced dementia, no cardiac history, admitted with nausea, chills. She was also hypoxic. Being treated for sepsis, unclear source, possible UTI.
Sepsis: per primary team
Elevated troponin: peak 1.87
-In setting of new left bundle branch block. Patient currently asymptomatic. No chest pain.
-suspect acute non-ischemic myocardial injury in setting of sepsis.
-Echo in AM
Left bundle branch block:
-New compared to prior EKGs from October 2022. Patient denied cardiac symptoms.
-Started on ASA by primary
-Echo today
Dementia: per primary team
Hypothyroidism: on levothyroxine
SUBJECTIVE:
Confused and restrained.
Physical Exam
Vital Signs/Labs
Vital Signs
Temp Pulse Resp BP Pulse Ox
98.1 F 81 18 115/73 95
01/02/24 03:01 01/02/24 03:01 01/02/24 03:01 01/02/24 03:01 01/02/24 03:01
01/02/24 06:34
01/02/24 06:34
APTT 45.7 Sec (23.4-35.0) H 01/01/24 10:05
Triglycerides 70 mg/dl (10-149) 12/31/23 06:08
LDL Cholesterol, Calc 50 mg/dl 12/31/23 06:08
VLDL Cholesterol, Calc 14 mg/dl (0-30) 12/31/23 06:08
HDL Cholesterol 38 mg/dl 12/31/23 06:08
12/30/23
21:42
Nds-S-Kgoiyufpstu Pept 3940
LAB Results
12/30/23 12/31/23 12/31/23
21:42 00:19 06:08
Troponin I 0.044 H* 1.150 H* D 1.870 H* D
12/31/23 12/31/23
12:08 12:33
Troponin I Cancelled 1.790 H*
Physical Exam
Constitutional: No acute distress and Comfortable
EENT: Anicteric and Moist mucous membranes
Cardiovascular: Rhythm & rate is regular, Pedal edema is absent, S1S2 is normal and Murmur/rub/gallop absent
Respiratory: Respiratory effort normal and Lungs clear to auscul.
GI: Soft, Distention absent, Flat, Non tender and Normal bowel sounds
Neuro/Psych: Other (confused)
Other: Skin (warm and dry without edema)
Data Reviewed
-
Date of Service: January 02, 2024
Labs: Labs Reviewed by me
Old Records: Reviewed
[2024-01-02] MEDS: ROCEPHIN 2000 MG IV (09:33)
[2024-01-02] MEDS: LOW STRENGTH ASPIRIN 81 MG PO (09:33)
[2024-01-02] MEDS: STERILE WATER FOR INJECTION 20 ML IV (09:34)
--- NOTE | 2024-01-02 11:05 | W.PN.HOSP.TC ---
Today's Communication/Plan
-
see bold
Assessment / Plan
Assessment / Plan
Gen: NAD, Awake and alert
Eyes: EOMI, PERRLA, no scleral icterus.
Neck: supple.
CV: RRR, +S1/S2, no m/r/g.
Resp: CTAB, no rales, wheezes, or rhonchi.
Abd: +BS, soft, NT, ND
Skin: No rashes.
Neuro: CN 2-12 intact, non-focal.
Psych: Normal mood and affect.
12/30/23 21:36 Urine Urine Culture - Final
Streptococcus agalactiae
Lactobacillus species
12/30/23 21:36 Blood/Venous Blood Culture - Preliminary
No Growth in 48 hours- Final report to follow
12/30/23 21:36 Blood/Venous Blood Culture - Preliminary
No Growth in 48 hours- Final report to follow
12/30/23 21:36 Nasal Swab Influenza Types A & B (SRAVANI) - Final
Negative for Influenza A & B, NAAT
Negative results must be combined with clinical observations
and patient history.
Nucleic Acid Amplification test (NAAT)performed on the
[employer] platform.
CTA chest:
1. No CTA evidence for an acute pulmonary thromboembolism.
2. Bilateral groundglass opacities favored to be secondary to hypoventilatory changes and atelectasis.
3. 8 mm solid pulmonary nodule in the superior segment of the left lower lobe partially obscured by atelectasis. Recommend a follow-up chest CT in 6-12 months per Fleischner Society guidelines.
Acute hypoxic respiratory failure:
-was on 6L NC O2, now weaned to RA
-proBNP was 3940. Patient was given IV Lasix on admission and became hypotensive.
-had lactic acidosis, now resolved
-COVID/Flu NEG
-CT chest without PE. Notable for B/L GGOs likely due to hypoventilatory changes and atelectasis
Elevated troponin:
-peaked at 1.87
-new LBBB
-Likely acute nonischemic myocardial injury due to sepsis
-check echo
-was on heparin gtt, now off
-cardiology following
Possible severe sepsis:
-minimal leukocytosis of 11.4 on admission
-afebrile throughout hospitalization
-Prior procal was 8.92, now 3.02
-UCx with strep agalactiae and lactobacillus, possibly contaminants (yet procal POS x 2)
-BCxs NGTD
-on day 3 abx (Rocephin/Azithro)
-c/s ID for abx recs
Advanced dementia:
-with agitation/behavioral disturbances
-Likely component of acute delirium also
-given Zyprexa/Risperdone/Ativan for agitation on 12/31/23
-cont Seroquel HS
-Psych following
Other problems:
Hypothyroidism: cont Levoxyl
h/o colitis/diverticulitis October 2022
DNR/Lovenox
Total time spent on today's encounter was 50 minutes which included time spent in counseling the patient/family regarding diagnosis and treatment plan as listed above, goals of care, and symptom management. Case was discussed with nursing staff,
specialists, and care coordinators/case management. All labs and imaging personally reviewed by me. Remainder the time spent in detailed review of previous records, lab data, imaging, and other medical provider documentation.
Anticipated Discharge: 24 - 48 hours
Subjective/Interval History
-
Date of Service: January 02, 2024
Denies CP/SOB.
Objective Data
-
Labs:
Laboratory Results
01/02/24
06:34
WBC 7.1
Hgb 14.5
Hct 41.7
Plt Count 165 D
Sodium 140
Potassium 3.3 L
Chloride 108 H
Carbon Dioxide 23
BUN 10
Creatinine 0.7
Glucose 82
Calcium 8.5
Total Bilirubin 0.6
AST 53 H
ALT 30
Alkaline Phosphatase 74
Vital Signs:
Vital Signs
Temp Pulse Resp BP Pulse Ox
97.8 F 75 17 133/70 93
01/02/24 07:30 01/02/24 07:30 01/02/24 07:30 01/02/24 07:30 01/02/24 07:30
I&O
01/01/24 01/02/24 01/03/24
06:59 06:59 06:59
Intake Total 720 / 720
Balance 720 / 720
[2024-01-02] MEDS: KCL 40 MEQ PO (11:38)
[2024-01-02 12:21] LABS: Procalcitonin 3.03 ng/ml (0.0-0.25)
--- NOTE | 2024-01-02 15:01 | CM ---
Multiple attempts to visit with Kayla; earlier today she was down for colonoscopy and since that time each time I attempted to visit she was sleeping. VM left for requesting return call to discuss possible VNA referral. CM to follow.
[2024-01-02 15:10] VITALS: BP 146/98
--- NOTE | 2024-01-02 15:21 | CON.ID ---
Consultation
-
Date/Time Consultation Requested: 01/02/2024 1118
Date/Time Consultation Performed: 01/02/2024 1521
Requesting Provider: Dr. Flor
Performing Provider: Dr. Howell
Reason for Consultation: Clinical sepsis
Chief Complaint / Past History
History of Present Illness
Kendy Katz is an 88-year-old female being evaluated at request of Dr. Flor in regards to possible sepsis. History is obtained from chart review along with patient interview, although the patient was found to be quite confused, not completely
oriented and did not provide significant history to me.
The patient presents to [facility] on 12/30/2023 with reported nausea, vomiting and chills. She was found to have a pulse ox in the 80s on room air. Workup in the emergency room revealed a mild leukocytosis with left shift. Troponin was
found to be elevated. She additionally had an elevated lactate at 2.8. Urine culture has grown out Streptococcus agalactiae.
At present, she denies any specific complaints. She denies any abdominal pain. Further history is limited.
Past History
Additional Past Medical History:
HTN
Hypothyroidism
Dementia
Additional Past Surgical History:
Cholecystectomy
Hysterectomy
Tonsillectomy
Allergy History:
No Known Allergies Allergy (Unverified 07/10/17 09:27)
Medications Reviewed: Yes
Current Antibiotics:
Ceftriaxone 2 g IV every 24 hours
Azithromycin 500 mg IV every 24 hours
Social History
Tobacco: Non-Smoker
Alcohol: None
Drug: None
Personal:
Living: With Family
Employment: Retired
Family History
Family History: Not Pertinent
Review of Systems
Vital Signs
Temp Pulse Resp BP Pulse Ox
97.4 F 80 18 146/98 96
01/02/24 15:10 01/02/24 15:10 01/02/24 15:10 01/02/24 15:10 01/02/24 15:10
Physical Exam
Physical Exam
Constitutional: No Acute Distress, Comfortable, Chronically Ill and Non-toxic
Head: Normocephalic
Eyes: Pupils Equal, Pupils Round, No Conjunctival Hemorrhage and Sclera Anicteric
Oral: No Thrush and No Ulcers
Cardiovascular: Irregular Rate, S1/S2 and S3/S4
Pulmonary: Clear; Negative Wheezes, Rales or Rhonchi
Gastrointestinal: Soft and Non Tender
Neurological: Awake and Alert
Psychological: Calm and Confused
Lab / Diagnostic Study Results
01/02/24 06:34
01/02/24 06:34
Abs Immat Gran (auto) 0.0 10^3/uL (0-0.05) 01/02/24 06:34
Absolute Neuts (auto) 4.6 10^3/uL (1.4-6.5) 01/02/24 06:34
Absolute Lymphs (auto) 1.6 10^3/uL (1.2-3.4) 01/02/24 06:34
Absolute Monos (auto) 0.6 10^3/uL (0.1-0.6) 01/02/24 06:34
Absolute Basos (auto) 0.1 10^3/uL (0-0.2) 01/02/24 06:34
Immature Gran % 0.1 % (0-0.5) 01/02/24 06:34
Neutrophils % 64.5 % (42.2-75.2) 01/02/24 06:34
Lymphocytes % 21.9 % (20.5-51.1) 01/02/24 06:34
Monocytes % 8.6 % (1.7-9.3) 01/02/24 06:34
Eosinophils % 4.1 % (0-6) 01/02/24 06:34
Basophils % 0.8 % (0-2) 01/02/24 06:34
Lactic Acid 0.8 mmol/L (0.7-2.0) 12/31/23 01:42
Procalcitonin 3.03 ng/ml (0.0-0.25) H* 01/02/24 11:33
Ur Squamous Epith Cells 16-20 /LPF (Few) 12/30/23 21:36
Microbiology Results
Micro:
12/30/23 21:36 Urine Culture - Final
Urine Streptococcus agalactiae
Lactobacillus species
12/30/23 21:36 Blood Culture - Preliminary
Blood/Venous No Growth in 48 hours- Final report to follow
12/30/23 21:36 Blood Culture - Preliminary
Blood/Venous No Growth in 48 hours- Final report to follow
12/30/23 21:36 Influenza Types A & B (SRAVANI) - Final
Nasal Swab Negative for Influenza A & B, NAAT
Negative results must be combined with clinical observations
and patient history.
Nucleic Acid Amplification test (NAAT)performed on the
[employer] platform.
Imaging:
12/31/2023 CT chest: No CT evidence for acute pulmonary thromboembolism. Bilateral groundglass opacities are favored to be secondary to hypoventilatory changes and atelectasis.
Assessment / Plan
Leukocytosis; resolved
Bacteriuria
Elevated procalcitonin; improved from admission
HTN
Hypothyroidism
Dementia
Recommendations:
Patient overall appears improved from admission.
Streptococcus recovered from urine.
Will transition to oral amoxicillin, to complete an additional 7 days of therapy.
Discontinue further Azithromycin
[2024-01-02 16:00] VITALS: BMI 25.1
[2024-01-02] MEDS: AMOXIL 500 MG PO (17:03)
[2024-01-02] MEDS: LOVENOX 40 MG SC (17:03)
[2024-01-02] MEDS: ATIVAN 0.5 MG IV (18:52)
[2024-01-02 19:00] VITALS: BP 146/88
--- NOTE | 2024-01-02 19:27 | PTCARENOTE ---
pt became agitated around 1700 today, pt was pulling at her IV access, pulled one of them out. patient also ripped her tele monitor off as well. pt was also found to be using her butter knife from dinner to cut at her tv remote. med [employer] did not
notify me on what was going on. it was reported to the charge nurse and also the nursing [employer] supervisor. pt was safe and did not harm self when entering the room but was taking her restraints off and was attempting to get out of bed. pt was put back on
the restraints and was positioned back in bed.
[2024-01-02] MEDS: SYNTHROID 50 MCG PO (20:28)
[2024-01-02] MEDS: SEROQUEL 25 MG PO (20:28)
[2024-01-03] MEDS: AMOXIL 500 MG PO ×3 (00:26→16:14)
[2024-01-03 03:00] VITALS: BP 135/79
[2024-01-03 05:26] VITALS: BMI 24.8
[2024-01-03 07:30] VITALS: BP 143/93
[2024-01-03] MEDS: LOW STRENGTH ASPIRIN 81 MG PO (07:50)
[2024-01-03] MEDS: ATIVAN 0.5 MG IV ×2 (07:51→22:00)
[2024-01-03] MEDS: NSS (PRESERVATIVE FREE) 0.25 ML IV (07:54)
[2024-01-03] MEDS: STERILE WATER FOR INJECTION IV (08:07)
--- NOTE | 2024-01-03 09:13 | W.PN.CD ---
Addendum entered and electronically signed by Frank Wood MD 01/03/24 09:23:
-
Will start 2 med classes this admit and the other 2 classes as outpatient
Original Note:
Today's Communication / Plan
-
Empiric medical therapy for cardiomyopathy
=> RAAS (HUMZA-I/ARB/ARNI), SGLT inhibitor, MRA, HF BB.
- I do not think she needs a diuretic at this time
Impression / Plan
-
Background: 88F with advanced dementia, no cardiac history, admitted with nausea, chills. She was also hypoxic. Being treated for sepsis, unclear source, possible UTI.
Presumed sepsis: per primary team
Elevated troponin: peak 1.87 => uncertain etiology, likely non infarct related myocardia injury
New cardiomyopathy, etiology uncertain
- No CP, no heart failure on exam or CXR
- New LBBB
- Newly found severe LV dysfunction
- Not candidate for stress test or cath
- Empiric medical therapy for cardiomyopathy
=> RAAS (HUMZA-I/ARB/ARNI), SGLT inhibitor, MRA, HF BB.
- I do not think she needs a diuretic at this time
Left bundle branch block
Dementia, significant
Hypothyroidism
Subjective:
Denies CP or dyspnea.
Physical Exam
Vital Signs/Labs
Vital Signs
Temp Pulse Resp BP Pulse Ox
98.2 F 84 17 143/93 97
01/03/24 07:30 01/03/24 07:30 01/03/24 07:30 01/03/24 07:30 01/03/24 07:30
01/02/24 01/03/24 01/04/24
06:59 06:59 06:59
Actual Weight 59.534 kg
01/02/24 06:34
01/02/24 06:34
APTT 45.7 Sec (23.4-35.0) H 01/01/24 10:05
Triglycerides 70 mg/dl (10-149) 12/31/23 06:08
LDL Cholesterol, Calc 50 mg/dl 12/31/23 06:08
VLDL Cholesterol, Calc 14 mg/dl (0-30) 12/31/23 06:08
HDL Cholesterol 38 mg/dl 12/31/23 06:08
12/30/23
21:42
Agx-O-Xhrickxdmsu Pept 3940
LAB Results
12/31/23 12/31/23
12:08 12:33
Troponin I Cancelled 1.790 H*
Physical Exam
Constitutional: No acute distress
EENT: Anicteric
Cardiovascular: Rhythm & rate is regular and Pedal edema is absent
Respiratory: Respiratory effort normal and Lungs clear to auscul.
GI: Soft and Distention absent
Data Reviewed
-
Date of Service: January 03, 2024
--- NOTE | 2024-01-03 11:01 | W.PN.HOSP.TC ---
Addendum entered and electronically signed by Kyle Flor MD 01/03/24 11:53:
Pt's son updated at length over the phone.
Original Note:
Today's Communication/Plan
-
see bold
Assessment / Plan
Assessment / Plan
Gen: NAD, Awake and alert
Eyes: EOMI, PERRLA, no scleral icterus.
Neck: supple.
CV: remains RRR, +S1/S2, no m/r/g.
Resp: remains CTAB, no rales, wheezes, or rhonchi.
Abd: remains +BS, soft, NT, ND
Skin: No rashes.
Neuro: CN 2-12 intact, non-focal.
Psych: Normal mood and affect.
12/30/23 21:36 Blood/Venous Blood Culture - Preliminary
No Growth in 72 hours- Final report to follow
12/30/23 21:36 Blood/Venous Blood Culture - Preliminary
No Growth in 72 hours- Final report to follow
12/30/23 21:36 Urine Urine Culture - Final
Streptococcus agalactiae
Lactobacillus species
12/30/23 21:36 Nasal Swab Influenza Types A & B (SRAVANI) - Final
Negative for Influenza A & B, NAAT
Negative results must be combined with clinical observations
and patient history.
Nucleic Acid Amplification test (NAAT)performed on the
[employer] NOW platform.
CTA chest:
1. No CTA evidence for an acute pulmonary thromboembolism.
2. Bilateral groundglass opacities favored to be secondary to hypoventilatory changes and atelectasis.
3. 8 mm solid pulmonary nodule in the superior segment of the left lower lobe partially obscured by atelectasis. Recommend a follow-up chest CT in 6-12 months per Fleischner Society guidelines.
Echo: Severely reduced left ventricular systolic function. EF 25-30%. Global hypokinesis. Aortic sclerosis without stenosis. No prior study available for comparison.
Acute hypoxic respiratory failure:
-was on 6L NC O2, now weaned to RA
-proBNP was 3940. Patient was given IV Lasix on admission and became hypotensive.
-had lactic acidosis, now resolved
-COVID/Flu NEG
-CT chest without PE. Notable for B/L GGOs likely due to hypoventilatory changes and atelectasis
Elevated troponin:
-peaked at 1.87
-new LBBB
-Likely acute nonischemic myocardial injury due to sepsis
-echo above
-was on heparin gtt, now off
-cardiology following. As per discussion with cardiology, goal-directed medical therapy only. No cardiac/coronary intervention/ischemic work up is planned at this time.
Acute HFrEF:
-new diagnosis, not in acute exacerbation currently
-Coreg and Jardiance started, further GDMT to added after discharge as per cardiology
Possible/likely severe sepsis due to possible/likely UTI:
-minimal leukocytosis of 11.4 on admission
-afebrile throughout hospitalization
-Prior procal was 8.92, now 3.02
-UCx with strep agalactiae and lactobacillus (procal POS x 2)
-BCxs NGTD
-pt was on Rocephin/Azithro and has not been transitioned to Amoxicillin through 01/09/24 as per ID
Advanced dementia:
-with agitation/behavioral disturbances
-Likely component of acute delirium also
-given Zyprexa/Risperdone/Ativan for agitation on 12/31/23
-cont Seroquel HS
-Psych following
Other problems:
Hypokalemia
Hypothyroidism: cont Levoxyl
h/o colitis/diverticulitis October 2022
DNR/Lovenox
Medically cleared for discharge. Case management aware.
Anticipated Discharge: Today
Subjective/Interval History
-
Date of Service: January 03, 2024
Pt confused. Mentions back pain and 'pain in my head.'
Objective Data
-
Vital Signs:
Vital Signs
Temp Pulse Resp BP Pulse Ox
98.2 F 84 17 143/93 97
01/03/24 07:30 01/03/24 07:30 01/03/24 07:30 01/03/24 07:30 01/03/24 08:00
I&O
01/02/24 01/03/24 01/04/24
06:59 06:59 06:59
Intake Total 720 / 720
Balance 720 / 720
--- NOTE | 2024-01-03 11:37 | CM ---
Addendum entered by Alejandar Duran 01/03/24 16:10:
Options list provided to spouse. will f/u with [facility] in am.
Addendum entered by Alejandra Duran 01/03/24 13:46:
Spoke with spouse, he would like skilled rehab.
[facility] is his preference.
Spouse will be in at 2 pm and additional options will be provided.
Patient will need to be off restraints and medsitter.
Plan: Skilled rehab
Original Note:
Left VM for patients spouse re d/c planning. Await TCB.
Patient seen by PT yesterday and recommendation for skilled rehab.
Patient was home with spouse prior to admission.
Son in to visit this am however, CM did not see son.
Plan: TBD
[2024-01-03] MEDS: RISPERDAL M-TAB (ORALLY DISINTEGRATING) 0.5 MG PO (11:55)
[2024-01-03 12:33] LABS: Potassium 3.7 mmol/L (3.5-5.1)
--- NOTE | 2024-01-03 14:31 | W.PN.UPDATE ---
Update Note
Progress Note Update
Pt seen, reviewed with nursing staff. Pt appears the same in mental status, mildly restless, pulls at cords. Pt alert, making eye contact, not able to give any information/answer questions due to dementia. Pt received prn Ativan 2 doses. Pt
noted to be agitated pulling out IV last pm; given prn Risperidone last night.
Imp: Dementia, advanced, with behavior disturbance. R/o superimposed delirium
Rec: would continue with Risperidone and Ativan prn for agitation. could try adding Depakote, although pt has increased AST and low platelets- could be worsened on Depakote
Haldol is not advisable in setting on prolonged QTc. If pt is aggressive and refusing po meds, IM Zyprexa is still the best overall option
Continue existing Seroquel 25 mg HS. Will follow.
[2024-01-03 15:30] VITALS: BP 157/94
--- NOTE | 2024-01-03 16:22 | W.PN.ID1 ---
Date of Service
Date of Service: January 03, 2024
Today's Communication
Continue abx.
Assessment / Plan
Leukocytosis; resolved
Bacteriuria
Elevated procalcitonin; improved from admission
HTN
Hypothyroidism
Dementia
Recommendations:
Patient overall appears improved from admission.
Streptococcus recovered from urine.
Continue amoxicillin, to complete an additional 6 days of therapy.
����������������������������������������������������������
Chief Complaint
-: UTI
Subjective / Review of Systems
Patient seen and examined. Remains confused.
Review of Systems: No Fever
Vital Signs / Physical Exam
Vital Signs
Vital Signs
Temp Pulse Resp BP Pulse Ox
97.7 F 97 18 157/94 93
01/03/24 15:30 01/03/24 15:30 01/03/24 15:30 01/03/24 15:30 01/03/24 15:30
Physical Exam
Constitutional: No Acute Distress, Comfortable, Chronically Ill and Non-toxic
Eyes: Sclera Anicteric
Cardiovascular: S1/S2; Negative S3/S4
Pulmonary: Non Labored
Neurological: Awake
Psychological: Confused and Agitated (Intermittently)
Objective Data
Lab Data
Lab Results
01/02/24 06:34
01/03/24 11:30
APTT 45.7 Sec (23.4-35.0) H 01/01/24 10:05
Estimated Creat Clear 50 ml/min 01/02/24 06:34
Lactic Acid 0.8 mmol/L (0.7-2.0) 12/31/23 01:42
Total Bilirubin 0.6 mg/dl (0.2-1.3) 01/02/24 06:34
AST 53 U/L (14-36) H 01/02/24 06:34
ALT 30 U/L (0-35) 01/02/24 06:34
Alkaline Phosphatase 74 U/L (38-126) 01/02/24 06:34
Most recent labs reviewed.
Micro Results:
12/30/23 21:36 Blood Culture - Preliminary
Blood/Venous No Growth in 72 hours- Final report to follow
12/30/23 21:36 Blood Culture - Preliminary
Blood/Venous No Growth in 72 hours- Final report to follow
12/30/23 21:36 Urine Culture - Final
Urine Streptococcus agalactiae
Lactobacillus species
12/30/23 21:36 Influenza Types A & B (SRAVANI) - Final
Nasal Swab Negative for Influenza A & B, NAAT
Negative results must be combined with clinical observations
and patient history.
Nucleic Acid Amplification test (NAAT)performed on the
[employer] platform.
Imaging:
12/31/2023 CT chest: No CT evidence for acute pulmonary thromboembolism. Bilateral groundglass opacities are favored to be secondary to hypoventilatory changes and atelectasis.
[2024-01-03] MEDS: LOVENOX 40 MG SC (18:29)
[2024-01-03] MEDS: SYNTHROID 50 MCG PO (20:01)
[2024-01-03] MEDS: SEROQUEL 25 MG PO (20:01)
[2024-01-03] MEDS: COREG 1.5625 MG PO (20:01)
[2024-01-03 23:41] VITALS: BP 146/88
[2024-01-04] MEDS: RISPERDAL M-TAB (ORALLY DISINTEGRATING) 0.5 MG PO ×2 (00:33→20:02)
[2024-01-04] MEDS: AMOXIL 500 MG PO ×3 (00:33→15:53)
--- NOTE | 2024-01-04 03:55 | DOWNTIME ---
There was a [employer] Client Plate Straightener Downtime on 01/03/2024 from 0100 to 01/04/2024 at 0300. Downtime documentation of patient's care, including medication administrations, has been reconciled in the electronic record per guidelines. Refer to the
patient's paper chart under the miscellaneous tab to see printed paper medication records and downtime forms.
--- NOTE | 2024-01-04 05:23 | PTCARENOTE ---
Addendum entered by Anna Wright RN 01/04/24 06:10:
urine* in her bladder
Original Note:
Patient bladder scanned at approx 0300 and found to have 203 mls of uring from her bladder. VSS. I will continue to monitor.
[2024-01-04 05:33] VITALS: BMI 24.8
[2024-01-04 07:00] VITALS: BP 126/80
[2024-01-04] MEDS: STERILE WATER FOR INJECTION IV (07:28)
[2024-01-04] MEDS: COREG 1.5625 MG PO ×2 (09:07→20:01)
[2024-01-04] MEDS: LOW STRENGTH ASPIRIN 81 MG PO (09:07)
[2024-01-04] MEDS: JARDIANCE 10 MG PO (09:08)
--- NOTE | 2024-01-04 10:23 | W.PN.CD ---
Today's Communication / Plan
-
Continue new SGLT2-I and new low dose bb
No changes this admit
Cardiology will sign off
Pt can be seen in our office in followup (Dr. Valadez) if family wishes
Impression / Plan
-
Background: 88F with advanced dementia, no cardiac history, admitted with nausea, chills. She was also hypoxic. Being treated for sepsis, unclear source, possible UTI.
Presumed sepsis: per primary team
Elevated troponin: peak 1.87 => uncertain etiology, likely non infarct related myocardial injury
New cardiomyopathy, etiology uncertain
- No clinical heart failure
- No CP, no heart failure on exam or CXR
- New LBBB
- Newly found severe LV dysfunction
- Not candidate for stress test or cath
- Empiric medical therapy for cardiomyopathy
=> RAAS (HUMZA-I/ARB/ARNI), SGLT inhibitor, MRA, HF BB as tolerated over time
=> Low dose BB and SGLT2-i added now and as outpatient can increase and add meds
- Dr. Starks updated physician son => son noted that pt had orthostatic symptoms limiting meds in past
- I do not think she needs a diuretic at this time
Left bundle branch block
Dementia, significant
Hypothyroidism
Subjective:
Denies CP or dyspnea.
Physical Exam
Vital Signs/Labs
Vital Signs
Temp Pulse Resp BP Pulse Ox
97.9 F 82 18 126/80 93
01/04/24 07:00 01/04/24 07:00 01/04/24 07:00 01/04/24 07:00 01/04/24 07:00
01/03/24 01/04/24 01/05/24
06:59 06:59 06:59
Actual Weight 59.534 kg 59.534 kg
01/02/24 06:34
01/03/24 11:30
APTT 45.7 Sec (23.4-35.0) H 01/01/24 10:05
Triglycerides 70 mg/dl (10-149) 12/31/23 06:08
LDL Cholesterol, Calc 50 mg/dl 12/31/23 06:08
VLDL Cholesterol, Calc 14 mg/dl (0-30) 12/31/23 06:08
HDL Cholesterol 38 mg/dl 12/31/23 06:08
12/30/23
21:42
Ihf-L-Lyuumucfljw Pept 3940
Physical Exam
Constitutional: No acute distress and Other (supine and comfortable)
EENT: Anicteric
Cardiovascular: Rhythm & rate is regular and Pedal edema is absent
Respiratory: Respiratory effort normal and Lungs clear to auscul.
GI: Soft and Distention absent
Data Reviewed
-
Date of Service: January 04, 2024
[2024-01-04 11:00] VITALS: BP 128/60
--- NOTE | 2024-01-04 12:09 | W.PN.HOSP.TC ---
Today's Communication/Plan
-
see bold
Assessment / Plan
Assessment / Plan
Gen: NAD, NCAT
CV: continues to remain RRR, +S1/S2, no m/r/g.
Resp: continues to remain CTAB, no rales, wheezes, or rhonchi.
Abd: continues to remain +BS, soft, NT, ND
Skin: No rashes.
Neuro: sleeping
Psych: sleeping
12/30/23 21:36 Blood/Venous Blood Culture - Preliminary
No Growth in 4 days- Final report to follow
12/30/23 21:36 Blood/Venous Blood Culture - Preliminary
No Growth in 4 days- Final report to follow
12/30/23 21:36 Urine Urine Culture - Final
Streptococcus agalactiae
Lactobacillus species
12/30/23 21:36 Nasal Swab Influenza Types A & B (SRAVANI) - Final
Negative for Influenza A & B, NAAT
Negative results must be combined with clinical observations
and patient history.
Nucleic Acid Amplification test (NAAT)performed on the
[employer] platform.
CTA chest:
1. No CTA evidence for an acute pulmonary thromboembolism.
2. Bilateral groundglass opacities favored to be secondary to hypoventilatory changes and atelectasis.
3. 8 mm solid pulmonary nodule in the superior segment of the left lower lobe partially obscured by atelectasis. Recommend a follow-up chest CT in 6-12 months per Fleischner Society guidelines.
Echo: Severely reduced left ventricular systolic function. EF 25-30%. Global hypokinesis. Aortic sclerosis without stenosis. No prior study available for comparison.
Acute hypoxic respiratory failure:
-was on 6L NC O2, now weaned to RA
-proBNP was 3940. Patient was given IV Lasix on admission and became hypotensive.
-had lactic acidosis, now resolved
-COVID/Flu NEG
-CT chest without PE. Notable for B/L GGOs likely due to hypoventilatory changes and atelectasis
Elevated troponin:
-peaked at 1.87
-new LBBB
-Likely acute nonischemic myocardial injury due to sepsis
-echo above
-was on heparin gtt, now off
-cardiology following. As per discussion with cardiology, goal-directed medical therapy only. No cardiac/coronary intervention/ischemic work up is planned at this time.
Acute HFrEF:
-new diagnosis, not in acute exacerbation currently
-Coreg and Jardiance started, further GDMT to added after discharge as per cardiology
Possible/likely severe sepsis due to possible/likely UTI:
-minimal leukocytosis of 11.4 on admission
-afebrile throughout hospitalization
-Prior procal was 8.92, now 3.02
-UCx with strep agalactiae and lactobacillus (procal POS x 2)
-BCxs NGTD
-pt was on Rocephin/Azithro and has not been transitioned to Amoxicillin through 01/09/24 as per ID
Advanced dementia:
-with agitation/behavioral disturbances
-Likely component of acute delirium also
-given Zyprexa/Risperdone/Ativan for agitation on 12/31/23
-cont Seroquel HS
-Psych saw in c/s
Other problems:
Hypokalemia
Hypothyroidism: cont Levoxyl
h/o colitis/diverticulitis October 2022
DNR/Lovenox
Remains medically cleared for discharge since 01/03/24. Case management aware.
Anticipated Discharge: Today
Subjective/Interval History
-
Date of Service: January 04, 2024
Pt sleeping.
Objective Data
-
Vital Signs:
Vital Signs
Temp Pulse Resp BP Pulse Ox
97.9 F 82 18 126/80 93
01/04/24 07:00 01/04/24 07:00 01/04/24 07:00 01/04/24 07:00 01/04/24 07:00
I&O
01/03/24 01/04/24 01/05/24
06:59 06:59 06:59
Intake Total 420 / 420
Output Total 900 / 900
Balance -480 / -480
--- NOTE | 2024-01-04 14:24 | CM ---
patient seen bedside.
Remains on medsitter.
Spoke with spouse. Additional referrals to [facility] and [facility].
Plan: skilled rehab once patient medically stable,off medsitter and bed available, no insurance auth required.
[2024-01-04 16:00] VITALS: BP 118/67
--- NOTE | 2024-01-04 17:02 | W.PN.ID1 ---
Date of Service
Date of Service: January 04, 2024
Today's Communication
Continue antibiotics.
Assessment / Plan
Leukocytosis; resolved
Bacteriuria
Elevated procalcitonin; improved from admission
HTN
Hypothyroidism
Dementia
Recommendations:
Patient overall appears improved from admission.
Streptococcus recovered from urine.
Continue amoxicillin, to complete an additional 5 days of therapy.
Little more to offer from a Infectious Diseases standpoint.
Will follow along with you peripherally.
����������������������������������������������������������
Chief Complaint
-: UTI
Subjective / Review of Systems
Patient seen and examined. Remains confused.
Review of Systems: No Fever
Vital Signs / Physical Exam
Vital Signs
Vital Signs
Temp Pulse Resp BP Pulse Ox
97.9 F 82 18 126/80 93
01/04/24 07:00 01/04/24 07:00 01/04/24 07:00 01/04/24 07:00 01/04/24 07:00
Physical Exam
Constitutional: No Acute Distress, Comfortable, Chronically Ill and Non-toxic
Pulmonary: Non Labored
Gastrointestinal: Non Distended
Skin: Negative Rash or Jaundice
Psychological: Calm
Objective Data
Lab Data
Lab Results
01/02/24 06:34
01/03/24 11:30
APTT 45.7 Sec (23.4-35.0) H 01/01/24 10:05
Estimated Creat Clear 50 ml/min 01/02/24 06:34
Lactic Acid 0.8 mmol/L (0.7-2.0) 12/31/23 01:42
Total Bilirubin 0.6 mg/dl (0.2-1.3) 01/02/24 06:34
AST 53 U/L (14-36) H 01/02/24 06:34
ALT 30 U/L (0-35) 01/02/24 06:34
Alkaline Phosphatase 74 U/L (38-126) 01/02/24 06:34
Most recent labs reviewed.
Micro Results:
12/30/23 21:36 Blood Culture - Preliminary
Blood/Venous No Growth in 4 days- Final report to follow
12/30/23 21:36 Blood Culture - Preliminary
Blood/Venous No Growth in 4 days- Final report to follow
12/30/23 21:36 Urine Culture - Final
Urine Streptococcus agalactiae
Lactobacillus species
12/30/23 21:36 Influenza Types A & B (SRAVANI) - Final
Nasal Swab Negative for Influenza A & B, NAAT
Negative results must be combined with clinical observations
and patient history.
Nucleic Acid Amplification test (NAAT)performed on the
[employer] platform.
Imaging:
12/31/2023 CT chest: No CT evidence for acute pulmonary thromboembolism. Bilateral groundglass opacities are favored to be secondary to hypoventilatory changes and atelectasis.
[2024-01-04] MEDS: LOVENOX 40 MG SC (17:46)
--- NOTE | 2024-01-04 17:58 | PTCARENOTE ---
Patient drowsy, sleeping for majority of shift. Patient with no urine output, bladder scanned at 0900 for 282 and again at 1500 for 371. Not straight cathed as per retention algorithm. At 1730, pt SpO2 86-89% on RA. Pt placed on 2L NC with resulting
SpO2 of 93%. Restraints discontinued at 1230, medsitter still in place. Plan of care ongoing.
[2024-01-04] MEDS: SYNTHROID 50 MCG PO (20:02)
[2024-01-04] MEDS: SEROQUEL 25 MG PO (20:02)
[2024-01-04] MEDS: MELATONIN 5 MG PO (20:46)
[2024-01-04 22:52] VITALS: BP 97/64
[2024-01-05] MEDS: AMOXIL 500 MG PO ×4 (00:27→23:05)
[2024-01-05 06:00] VITALS: BMI 24.8
[2024-01-05 07:00] VITALS: BP 126/64
--- NOTE | 2024-01-05 07:15 | PTCARENOTE ---
Patient bladder scanned for 515 mls of urine. Patient straight cathed; 300 mls of clear, yellow, concentrated urine drained. VSS. Will continue to monitor.
--- NOTE | 2024-01-05 08:30 | W.PN.HOSP.TC ---
Today's Communication/Plan
-
see bold
Assessment / Plan
Assessment / Plan
Gen: NAD, Awake and alert
Eyes: EOMI, PERRLA, no scleral icterus.
Neck: supple.
CV: RRR, +S1/S2, no m/r/g.
Resp: CTAB, no rales, wheezes, or rhonchi.
Abd: +BS, soft, NT, ND
Skin: No rashes.
Neuro: CN 2-12 intact, non-focal.
Psych: Normal mood and affect.
12/30/23 21:36 Blood/Venous Blood Culture - Final
No Growth - Final Report
12/30/23 21:36 Blood/Venous Blood Culture - Final
No Growth - Final Report
12/30/23 21:36 Urine Urine Culture - Final
Streptococcus agalactiae
Lactobacillus species
12/30/23 21:36 Nasal Swab Influenza Types A & B (SRAVANI) - Final
Negative for Influenza A & B, NAAT
Negative results must be combined with clinical observations
and patient history.
Nucleic Acid Amplification test (NAAT)performed on the
[employer] platform.
CTA chest:
1. No CTA evidence for an acute pulmonary thromboembolism.
2. Bilateral groundglass opacities favored to be secondary to hypoventilatory changes and atelectasis.
3. 8 mm solid pulmonary nodule in the superior segment of the left lower lobe partially obscured by atelectasis. Recommend a follow-up chest CT in 6-12 months per Fleischner Society guidelines.
Echo: Severely reduced left ventricular systolic function. EF 25-30%. Global hypokinesis. Aortic sclerosis without stenosis. No prior study available for comparison.
Acute hypoxic respiratory failure:
-was on 6L NC O2, now weaned to RA
-proBNP was 3940. Patient was given IV Lasix on admission and became hypotensive.
-had lactic acidosis, now resolved
-COVID/Flu NEG
-CT chest without PE. Notable for B/L GGOs likely due to hypoventilatory changes and atelectasis
Elevated troponin:
-peaked at 1.87
-new LBBB
-Likely acute nonischemic myocardial injury due to sepsis
-echo above
-was on heparin gtt, now off
-cardiology following. As per discussion with cardiology, goal-directed medical therapy only. No cardiac/coronary intervention/ischemic work up is planned at this time.
Acute HFrEF:
-new diagnosis, not in acute exacerbation currently
-Coreg and Jardiance started, further GDMT to added after discharge as per cardiology
Possible/likely severe sepsis due to possible/likely UTI:
-minimal leukocytosis of 11.4 on admission
-afebrile throughout hospitalization
-Prior procal was 8.92, now 3.02
-UCx with strep agalactiae and lactobacillus (procal POS x 2)
-BCxs NGTD
-pt was on Rocephin/Azithro and has not been transitioned to Amoxicillin through 01/09/24 as per ID
Advanced dementia:
-with agitation/behavioral disturbances
-Likely component of acute delirium also
-given Zyprexa/Risperdone/Ativan for agitation on 12/31/23
-cont Seroquel HS
-Psych saw in c/s
Other problems:
Hypokalemia
Hypothyroidism: cont Levoxyl
h/o colitis/diverticulitis October 2022
DNR/Lovenox
Remains medically cleared for discharge since 01/03/24. Case management aware.
Anticipated Discharge: Today
Subjective/Interval History
-
Date of Service: January 05, 2024
No new complaints.
Objective Data
-
Labs:
Laboratory Results
01/05/24
06:00
WBC Pending
Hgb Pending
Hct Pending
Plt Count Pending
Sodium Pending
Potassium Pending
Chloride Pending
Carbon Dioxide Pending
BUN Pending
Creatinine Pending
Glucose Pending
Calcium Pending
Vital Signs:
Vital Signs
Temp Pulse Resp BP Pulse Ox
98.3 F 84 18 97/64 95
01/04/24 22:52 01/04/24 22:52 01/04/24 22:52 01/04/24 22:52 01/04/24 22:52
I&O
01/04/24 01/05/24 01/06/24
06:59 06:59 06:59
Intake Total 420 / 420 360 / 360
Output Total 900 / 900 600 / 600
Balance -480 / -480 360 / 360 -600 / -600
[2024-01-05] MEDS: LOW STRENGTH ASPIRIN 81 MG PO (08:32)
[2024-01-05] MEDS: COREG 1.5625 MG PO ×2 (08:36→21:01)
[2024-01-05] MEDS: JARDIANCE 10 MG PO (08:41)
[2024-01-05] MEDS: STERILE WATER FOR INJECTION IV (08:45)
[2024-01-05 09:37] LABS: Hematocrit 46.5 % (37.0-47.0); Mean Corp Hgb Conc. 32.3 g/dL (33.0-37.0); Mean Corpuscular Hgb 28.5 pg (27.0-31.0); Mean Corpuscular Volume 88.4 fL (81.0-99.0); Mean Platelet Volume 10.6 fL (7.4-10.4); Platelet Count 228 10^3/uL (130-400); Red Blood Cell Count 5.26 10^6/uL (4.20-5.40); Red Cell Dist. Width 14.4 % (11.5-14.5)
[2024-01-05 10:38] LABS: Blood Urea Nitrogen 16 mg/dl (7-17); Calcium 9.1 mg/dl (8.4-10.2); Carbon Dioxide 23 mmol/L (22-30); Chloride 110 mmol/L (98-107); Estimated Creatinine Clearance 38 ml/min; Glucose 110 mg/dl (70-99); Potassium 3.8 mmol/L (3.5-5.1); Sodium 143 mmol/L (135-145); eGFR > 60.00
--- NOTE | 2024-01-05 11:05 | W.PN.UPDATE ---
Update Note
Progress Note Update
patient seen chart reviewed. spoke with nursing and cm at bedside. patient is 88 yo w hx dementia here at w urosepsis, cardiac issues hypothyroid, diverticulosis. she has had periods of agitation while here which seem to be getting
better. she is being rx w seroquel not the best choice w prolonged qtc (515), [facility] and a prn of risperdal was added which she has also received. she was very pleasant albeit rather confused today. spoke with cm who
reports that patient needs to be off med sitter to go to [facility] which is the current plan. spoke to nsg about considering dc of med sitter will also switch to risperdal which has less impact on qtc prn and standing. check ecg. will follow
--- NOTE | 2024-01-05 14:14 | W.PN.ID1 ---
Date of Service
Date of Service: January 05, 2024
Today's Communication
Sign off.
Assessment / Plan
Leukocytosis; resolved
Bacteriuria
Elevated procalcitonin; improved from admission
HTN
Hypothyroidism
Dementia
Recommendations:
Patient overall appears improved from admission.
Streptococcus recovered from urine.
Continue amoxicillin, to complete an additional 4 days of therapy.
Little more to offer from a Infectious Diseases standpoint.
Will see again at your request
����������������������������������������������������������
Chief Complaint
-: UTI
Subjective / Review of Systems
Review of Systems: No Fever and No Chills
Vital Signs / Physical Exam
Vital Signs
Vital Signs
Temp Pulse Resp BP Pulse Ox
98.2 F 76 20 176/64 91
01/05/24 07:00 01/05/24 08:36 01/05/24 07:00 01/05/24 08:36 01/05/24 07:00
Physical Exam
Constitutional: No Acute Distress, Comfortable, Chronically Ill and Non-toxic
Cardiovascular: S1/S2; Negative S3/S4
Pulmonary: Clear and Non Labored
Gastrointestinal: Soft, Non Tender and Non Distended
Neurological: Awake and Alert
Psychological: Calm and Confused
Objective Data
Lab Data
Lab Results
01/05/24 09:22
01/05/24 09:22
APTT 45.7 Sec (23.4-35.0) H 01/01/24 10:05
Estimated Creat Clear 38 ml/min 01/05/24 09:22
Lactic Acid 0.8 mmol/L (0.7-2.0) 12/31/23 01:42
Total Bilirubin 0.6 mg/dl (0.2-1.3) 01/02/24 06:34
AST 53 U/L (14-36) H 01/02/24 06:34
ALT 30 U/L (0-35) 01/02/24 06:34
Alkaline Phosphatase 74 U/L (38-126) 01/02/24 06:34
Most recent labs reviewed.
Micro Results:
12/30/23 21:36 Blood Culture - Final
Blood/Venous No Growth - Final Report
12/30/23 21:36 Blood Culture - Final
Blood/Venous No Growth - Final Report
12/30/23 21:36 Urine Culture - Final
Urine Streptococcus agalactiae
Lactobacillus species
12/30/23 21:36 Influenza Types A & B (SRAVANI) - Final
Nasal Swab Negative for Influenza A & B, NAAT
Negative results must be combined with clinical observations
and patient history.
Nucleic Acid Amplification test (NAAT)performed on the
[employer] platform.
Imaging:
12/31/2023 CT chest: No CT evidence for acute pulmonary thromboembolism. Bilateral groundglass opacities are favored to be secondary to hypoventilatory changes and atelectasis.
[2024-01-05] MEDS: RISPERDAL M-TAB (ORALLY DISINTEGRATING) 0.5 MG PO ×3 (14:21→22:56)
[2024-01-05] MEDS: TYLENOL 650 MG PO ×2 (14:21→22:55)
[2024-01-05 15:00] VITALS: BP 137/81
[2024-01-05 15:23] VITALS: BMI 24.8
--- NOTE | 2024-01-05 15:40 | CM ---
Patient continues on medsitter.
Spoke with spouse and he has an appointment at [facility] tomorrow.
Referral sent via careport.
PT/OT recommending skilled rehab.
Plan: skilled rehab once off medsitter.
[2024-01-05] MEDS: LOVENOX 40 MG SC (17:31)
[2024-01-05 19:12] VITALS: BP 151/84
[2024-01-05] MEDS: SYNTHROID 50 MCG PO (21:03)
[2024-01-05 23:46] VITALS: BP 103/71
[2024-01-06 05:42] VITALS: BMI 24.4
[2024-01-06] MEDS: STERILE WATER FOR INJECTION IV (09:07)
--- NOTE | 2024-01-06 09:35 | CM ---
Addendum entered by Keiko Tirado 01/06/24 11:22:
Spoke with patient's son, José #[phone] (Son is a Physician)
Per son, [facility] is his SNF preference; and he plans to speak with his father
Per son, please call him with DC status; not his father
Son understands that mother had 1:1 @ bedside during the night
CM will follow and support coordination of discharge
Original Note:
Per Attending, patient is stable for discharge
Patient has 1:1 @ bedside
Will follow and support coordination of discharge once patient no longer requires 1:1
[2024-01-06 09:54] VITALS: BP 114/67
[2024-01-06] MEDS: JARDIANCE 10 MG PO (10:10)
[2024-01-06] MEDS: RISPERDAL M-TAB (ORALLY DISINTEGRATING) 0.5 MG PO ×2 (10:10→20:06)
[2024-01-06] MEDS: LOW STRENGTH ASPIRIN 81 MG PO (10:11)
[2024-01-06] MEDS: COREG 1.5625 MG PO ×2 (10:11→20:05)
[2024-01-06] MEDS: AMOXIL 500 MG PO ×3 (10:11→23:06)
[2024-01-06] MEDS: TYLENOL 650 MG PO ×2 (10:22→22:43)
--- NOTE | 2024-01-06 11:20 | W.PN.HOSP.TC ---
Today's Communication/Plan
-
see bold
Assessment / Plan
Assessment / Plan
Gen: NAD, Awake and alert
Eyes: EOMI, PERRLA, no scleral icterus.
Neck: supple.
CV: remains RRR, +S1/S2, no m/r/g.
Resp: remains CTAB, no rales, wheezes, or rhonchi.
Abd: remains +BS, soft, NT, ND
Skin: No rashes.
Neuro: CN 2-12 intact, non-focal.
Psych: Normal mood and affect.
12/30/23 21:36 Blood/Venous Blood Culture - Final
No Growth - Final Report
12/30/23 21:36 Blood/Venous Blood Culture - Final
No Growth - Final Report
12/30/23 21:36 Urine Urine Culture - Final
Streptococcus agalactiae
Lactobacillus species
12/30/23 21:36 Nasal Swab Influenza Types A & B (SRAVANI) - Final
Negative for Influenza A & B, NAAT
Negative results must be combined with clinical observations
and patient history.
Nucleic Acid Amplification test (NAAT)performed on the
[employer] ID NOW platform.
CTA chest:
1. No CTA evidence for an acute pulmonary thromboembolism.
2. Bilateral groundglass opacities favored to be secondary to hypoventilatory changes and atelectasis.
3. 8 mm solid pulmonary nodule in the superior segment of the left lower lobe partially obscured by atelectasis. Recommend a follow-up chest CT in 6-12 months per Fleischner Society guidelines.
Echo: Severely reduced left ventricular systolic function. EF 25-30%. Global hypokinesis. Aortic sclerosis without stenosis. No prior study available for comparison.
Acute hypoxic respiratory failure:
-was on 6L NC O2, now weaned to RA
-proBNP was 3940. Patient was given IV Lasix on admission and became hypotensive.
-had lactic acidosis, now resolved
-COVID/Flu NEG
-CT chest without PE. Notable for B/L GGOs likely due to hypoventilatory changes and atelectasis
Elevated troponin:
-peaked at 1.87
-new LBBB
-Likely acute nonischemic myocardial injury due to sepsis
-echo above
-was on heparin gtt, now off
-cardiology following. As per discussion with cardiology, goal-directed medical therapy only. No cardiac/coronary intervention/ischemic work up is planned at this time.
Acute HFrEF:
-new diagnosis, not in acute exacerbation currently
-Coreg and Jardiance started, further GDMT to added after discharge as per cardiology
-wt stable
Possible/likely severe sepsis due to possible/likely UTI:
-minimal leukocytosis of 11.4 on admission
-afebrile throughout hospitalization
-Prior procal was 8.92, now 3.02
-UCx with strep agalactiae and lactobacillus (procal POS x 2)
-BCxs NGTD
-pt was on Rocephin/Azithro and has not been transitioned to Amoxicillin through 01/09/24 as per ID
Advanced dementia:
-with agitation/behavioral disturbances
-Likely component of acute delirium also
-given Zyprexa/Risperdone/Ativan for agitation on 12/31/23
-was on Seroquel HS which was stopped with prolonged QTc. Now transitioned to Risperdal (discussed with Dr. Yo).
Other problems:
Hypokalemia
Hypothyroidism: cont Levoxyl
h/o colitis/diverticulitis October 2022
DNR/Lovenox
Case discussed at length with the pt's son in person. Also discussed at length with CM and nursing.
Remains medically cleared for discharge since 01/03/24. Case management aware.
Total time spent on today's encounter was 50 minutes which included time spent in counseling the patient/family regarding diagnosis and treatment plan as listed above, goals of care, and symptom management. Case was discussed with nursing staff,
specialists, and care coordinators/case management. All labs and imaging personally reviewed by me. Remainder the time spent in detailed review of previous records, lab data, imaging, and other medical provider documentation.
Anticipated Discharge: Today
Subjective/Interval History
-
Date of Service: January 06, 2024
Pt states she is 'OK.'
Objective Data
-
Vital Signs:
Vital Signs
Temp Pulse Resp BP Pulse Ox
97.7 F 78 18 114/67 97
01/06/24 09:54 01/06/24 09:54 01/06/24 09:54 01/06/24 09:54 01/06/24 09:54
I&O
01/05/24 01/06/24 01/07/24
06:59 06:59 06:59
Intake Total 360 / 360 840 / 840
Output Total 1250 / 1250
Balance 360 / 360 -410 / -410
--- NOTE | 2024-01-06 13:59 | W.PN.UPDATE ---
Update Note
Progress Note Update
patient seen chart reviewed. discussed w nursing text w dr brannon and spoke with son aida phelps discussing mrs phelps's condition. the patient had been agitated earlier this am and required prn risperdal. she was when i saw her later in the day
exactly as she had been yesterday pleasantly confused. it seems she did respond to the prn of risperdal this am with good result. have increased the risperdal to o.5 mg bid. will reduce the prn to 0.25 since the risperdal scheduled order is being
increased. will follow
--- NOTE | 2024-01-06 14:00 | PTCARENOTE ---
Patient with 1:1 at bedside today for safety. Patient confused throughout day, at times pushing past staff out of her room. PRN Risperdal administered, see MAR. EVANS updated.
[2024-01-06 15:36] VITALS: BP 126/72
[2024-01-06] MEDS: LOVENOX 40 MG SC (18:29)
[2024-01-06] MEDS: SYNTHROID 50 MCG PO (20:11)
[2024-01-06] MEDS: RISPERDAL M-TAB (ORALLY DISINTEGRATING) 0.25 MG PO (21:57)
[2024-01-06 23:00] VITALS: BP 111/67
[2024-01-07 06:00] VITALS: BMI 24.4
[2024-01-07 07:00] VITALS: BP 124/72
[2024-01-07] MEDS: COREG 1.5625 MG PO ×2 (08:35→19:56)
[2024-01-07] MEDS: RISPERDAL M-TAB (ORALLY DISINTEGRATING) 0.5 MG PO ×2 (08:36→19:58)
[2024-01-07] MEDS: JARDIANCE 10 MG PO (08:36)
[2024-01-07] MEDS: AMOXIL 500 MG PO ×2 (08:36→16:41)
[2024-01-07] MEDS: STERILE WATER FOR INJECTION IV (08:37)
[2024-01-07] MEDS: LOW STRENGTH ASPIRIN 81 MG PO (08:54)
--- NOTE | 2024-01-07 11:08 | W.PN.HOSP.TC ---
Today's Communication/Plan
-
see bold
Assessment / Plan
Assessment / Plan
Gen: remains NAD, Awake and alert
Eyes: remains EOMI, PERRLA, no scleral icterus.
Neck: supple.
CV: RRR, +S1/S2, no m/r/g.
Resp: CTAB, no rales, wheezes, or rhonchi.
Abd: +BS, soft, NT, ND
Skin: No rashes.
Neuro: remains CN 2-12 intact, non-focal.
Psych: Normal mood and affect.
12/30/23 21:36 Blood/Venous Blood Culture - Final
No Growth - Final Report
12/30/23 21:36 Blood/Venous Blood Culture - Final
No Growth - Final Report
12/30/23 21:36 Urine Urine Culture - Final
Streptococcus agalactiae
Lactobacillus species
12/30/23 21:36 Nasal Swab Influenza Types A & B (SRAVANI) - Final
Negative for Influenza A & B, NAAT
Negative results must be combined with clinical observations
and patient history.
Nucleic Acid Amplification test (NAAT)performed on the
[employer] NOW platform.
CTA chest:
1. No CTA evidence for an acute pulmonary thromboembolism.
2. Bilateral groundglass opacities favored to be secondary to hypoventilatory changes and atelectasis.
3. 8 mm solid pulmonary nodule in the superior segment of the left lower lobe partially obscured by atelectasis. Recommend a follow-up chest CT in 6-12 months per Fleischner Society guidelines.
Echo: Severely reduced left ventricular systolic function. EF 25-30%. Global hypokinesis. Aortic sclerosis without stenosis. No prior study available for comparison.
Acute hypoxic respiratory failure:
-was on 6L [place] O2, now weaned to RA
-proBNP was 3940. Patient was given IV Lasix on admission and became hypotensive.
-had lactic acidosis, now resolved
-COVID/Flu NEG
-CT chest without PE. Notable for B/L GGOs likely due to hypoventilatory changes and atelectasis
Elevated troponin:
-peaked at 1.87
-new LBBB
-Likely acute nonischemic myocardial injury due to sepsis
-echo above
-was on heparin gtt, now off
-cardiology following. As per discussion with cardiology, goal-directed medical therapy only. No cardiac/coronary intervention/ischemic work up is planned at this time.
Acute HFrEF:
-new diagnosis, not in acute exacerbation currently
-Coreg and Jardiance started, further GDMT to added after discharge as per cardiology
-wt stable
Possible/likely severe sepsis due to possible/likely UTI:
-minimal leukocytosis of 11.4 on admission
-afebrile throughout hospitalization
-Prior procal was 8.92, now 3.02
-UCx with strep agalactiae and lactobacillus (procal POS x 2)
-BCxs NGTD
-pt was on Rocephin/Azithro and has not been transitioned to Amoxicillin through 01/09/24 as per ID
Advanced dementia:
-with agitation/behavioral disturbances
-Likely component of acute delirium also
-given Zyprexa/Risperdone/Ativan for agitation on 12/31/23
-was on Seroquel HS which was stopped with prolonged QTc. Now transitioned to Risperdal, dose increased.
Other problems:
Hypokalemia
Hypothyroidism: cont Levoxyl
h/o colitis/diverticulitis October 2022
DNR/Lovenox
Remains medically cleared for discharge since 01/03/24. Case management aware.
Anticipated Discharge: Today
Subjective/Interval History
-
Date of Service: January 07, 2024
No new complaints.
Objective Data
-
Vital Signs:
Vital Signs
Temp Pulse Resp BP Pulse Ox
97.6 F 69 18 124/72 97
01/07/24 07:00 01/07/24 08:35 01/07/24 07:00 01/07/24 08:35 01/07/24 07:00
I&O
01/06/24 01/07/24 01/08/24
06:59 06:59 06:59
Intake Total 840 / 840 480 / 480 120 / 120
Output Total 1250 / 1250
Balance -410 / -410 480 / 480 120 / 120
--- NOTE | 2024-01-07 11:37 | W.PN.UPDATE ---
Update Note
Progress Note Update
Patient is in very good mood today, her daughter and GRUPO were visiting. She was very upbeat , obviously very impaired cognitively.
Risperdal was increased yesterday to 0.5 mg bid, it seems to help.
Discussed with daughter.
[2024-01-07 15:00] VITALS: BP 125/70
--- NOTE | 2024-01-07 15:26 | CM ---
Patient seen bedside, continues with 1:1.
Son and spouse in with patient today.
Plan: skilled rehab when stable and off 1:1.
--- NOTE | 2024-01-07 17:00 | PTCARENOTE ---
Patient incontinent of loose stool during shift. Patient and family educated regarding this as a side effect of ABX. Patient encouraged to eat yogurt with meals. Kitchen to send yogurt with all meals for patient.
[2024-01-07] MEDS: LOVENOX 40 MG SC (17:37)
[2024-01-07 23:00] VITALS: BP 129/56
[2024-01-08] MEDS: SYNTHROID 50 MCG PO ×2 (00:10→21:35)
[2024-01-08] MEDS: AMOXIL 500 MG PO ×3 (00:11→16:08)
[2024-01-08] MEDS: RISPERDAL M-TAB (ORALLY DISINTEGRATING) 0.25 MG PO (00:27)
[2024-01-08 07:13] VITALS: BP 120/68
[2024-01-08] MEDS: JARDIANCE 10 MG PO (08:23)
[2024-01-08] MEDS: LOW STRENGTH ASPIRIN 81 MG PO (08:23)
[2024-01-08] MEDS: COREG 1.5625 MG PO ×2 (08:23→21:34)
[2024-01-08] MEDS: RISPERDAL M-TAB (ORALLY DISINTEGRATING) 0.5 MG PO ×2 (08:24→21:35)
[2024-01-08] MEDS: STERILE WATER FOR INJECTION IV (08:26)
--- NOTE | 2024-01-08 09:04 | W.PN.HOSP.TC ---
Today's Communication/Plan
-
see bold
Assessment / Plan
Assessment / Plan
Gen: continues to remain NAD, Awake and alert
Eyes: continues to remain EOMI, PERRLA, no scleral icterus.
Neck: supple.
CV: RRR, +S1/S2, no m/r/g.
Resp: CTAB, no rales, wheezes, or rhonchi.
Skin: No rashes.
Neuro: continues to remain CN 2-12 intact, non-focal.
Psych: Normal mood and affect.
12/30/23 21:36 Blood/Venous Blood Culture - Final
No Growth - Final Report
12/30/23 21:36 Blood/Venous Blood Culture - Final
No Growth - Final Report
12/30/23 21:36 Urine Urine Culture - Final
Streptococcus agalactiae
Lactobacillus species
12/30/23 21:36 Nasal Swab Influenza Types A & B (SRAVANI) - Final
Negative for Influenza A & B, NAAT
Negative results must be combined with clinical observations
and patient history.
Nucleic Acid Amplification test (NAAT)performed on the
[employer] NOW platform.
CTA chest:
1. No CTA evidence for an acute pulmonary thromboembolism.
2. Bilateral groundglass opacities favored to be secondary to hypoventilatory changes and atelectasis.
3. 8 mm solid pulmonary nodule in the superior segment of the left lower lobe partially obscured by atelectasis. Recommend a follow-up chest CT in 6-12 months per Fleischner Society guidelines.
Echo: Severely reduced left ventricular systolic function. EF 25-30%. Global hypokinesis. Aortic sclerosis without stenosis. No prior study available for comparison.
Acute hypoxic respiratory failure:
-was on 6L [place] O2, now weaned to RA
-proBNP was 3940. Patient was given IV Lasix on admission and became hypotensive.
-had lactic acidosis, now resolved
-COVID/Flu NEG
-CT chest without PE. Notable for B/L GGOs likely due to hypoventilatory changes and atelectasis
Elevated troponin:
-peaked at 1.87
-new LBBB
-Likely acute nonischemic myocardial injury due to sepsis
-echo above
-was on heparin gtt, now off
-cardiology following. As per discussion with cardiology, goal-directed medical therapy only. No cardiac/coronary intervention/ischemic work up is planned at this time.
Acute HFrEF:
-new diagnosis, not in acute exacerbation currently
-Coreg and Jardiance started, further GDMT to added after discharge as per cardiology
-wt stable
Possible/likely severe sepsis due to possible/likely UTI:
-minimal leukocytosis of 11.4 on admission
-afebrile throughout hospitalization
-Prior procal was 8.92, now 3.02
-UCx with strep agalactiae and lactobacillus (procal POS x 2)
-BCxs NGTD
-pt was on Rocephin/Azithro and has not been transitioned to Amoxicillin through 01/09/24 as per ID
Advanced dementia:
-with agitation/behavioral disturbances
-Likely component of acute delirium also
-given Zyprexa/Risperdone/Ativan for agitation on 12/31/23
-was on Seroquel HS which was stopped with prolonged QTc. Now transitioned to Risperdal, dose increased.
Other problems:
Hypokalemia
Hypothyroidism: cont Levoxyl
h/o colitis/diverticulitis October 2022
DNR/Lovenox
Remains medically cleared for discharge since 01/03/24. Case management aware.
Anticipated Discharge: Today
Subjective/Interval History
-
Date of Service: January 08, 2024
No new complaints.
Objective Data
-
Vital Signs:
Vital Signs
Temp Pulse Resp BP Pulse Ox
98.2 F 68 16 120/68 92
01/08/24 07:13 01/08/24 07:13 01/08/24 07:13 01/08/24 07:13 01/08/24 07:13
I&O
01/07/24 01/08/24 01/09/24
06:59 06:59 06:59
Intake Total 480 / 480 120 / 120
Balance 480 / 480 120 / 120
--- NOTE | 2024-01-08 10:35 | W.PN.UPDATE ---
Update Note
Progress Note Update
Patient is doing well, very pleasant albeit confused. was visiting.
It seems the Risperdal is helping with mood stabilization and agitation.
Will continue current psychopharmacological treatment for now.
--- NOTE | 2024-01-08 11:28 | CM ---
Patient ambulating in [place].
Spoke with spouse re skilled rehab, LTC, memory care and private caregivers.
List of Memory Care facilities given to spouse.
Spouse also requested endo tech list.
Long conversation with patients son re the same.
Discussed skilled and plan for after skilled rehab, will probably be home with possibly some caregivers and family will slowly keep introducing concept of memory care to spouse.
Patient remains on 1:1.
Plan: skilled rehab once medically stable and off 1:1.
preference is [facility].
[2024-01-08] MEDS: ATIVAN 0.5 MG IV (16:52)
[2024-01-08] MEDS: LOVENOX 40 MG SC (17:24)
[2024-01-08 21:33] VITALS: BP 125/84
[2024-01-09] MEDS: AMOXIL 500 MG PO ×2 (01:09→09:13)
[2024-01-09 08:30] VITALS: BP 113/67
[2024-01-09] MEDS: COREG 1.5625 MG PO ×2 (09:11→21:06)
[2024-01-09] MEDS: LOW STRENGTH ASPIRIN 81 MG PO (09:11)
[2024-01-09] MEDS: JARDIANCE 10 MG PO (09:12)
[2024-01-09] MEDS: RISPERDAL M-TAB (ORALLY DISINTEGRATING) 0.5 MG PO ×2 (09:13→21:07)
[2024-01-09] MEDS: STERILE WATER FOR INJECTION IV (09:13)
--- NOTE | 2024-01-09 10:30 | CM ---
Addendum entered by Alejandra Duran 01/09/24 15:22:
TC from [facility]- unable to accept.
Addendum entered by Alejandra Duran 01/09/24 14:16:
TC from [facility], they may be able to accept patient.
Michaela updated that patient is on a 1:1 and she is discussing with her admin.
if able to accept will reach out to son.
Original Note:
bed search continues.
Left VM with [facility] re bed availability.
Await skilled rehab bed.
--- NOTE | 2024-01-09 12:34 | W.PN.HOSP.TC ---
Today's Communication/Plan
-
monitor vitals
see plan
cw risperidone
dc planning
Discussed with at bedside
Assessment / Plan
Assessment / Plan
Gen: continues to remain NAD, Awake and alert
Eyes: continues to remain EOMI, PERRLA, no scleral icterus.
Neck: supple.
CV: RRR, +S1/S2, no m/r/g.
Resp: CTAB, no rales, wheezes, or rhonchi.
Skin: No rashes.
Neuro: continues to remain CN 2-12 intact, non-focal.
Psych: Normal mood and affect.
12/30/23 21:36 Blood/Venous Blood Culture - Final
No Growth - Final Report
12/30/23 21:36 Blood/Venous Blood Culture - Final
No Growth - Final Report
12/30/23 21:36 Urine Urine Culture - Final
Streptococcus agalactiae
Lactobacillus species
12/30/23 21:36 Nasal Swab Influenza Types A & B (SRAVANI) - Final
Negative for Influenza A & B, NAAT
Negative results must be combined with clinical observations
and patient history.
Nucleic Acid Amplification test (NAAT)performed on the
[employer] ID NOW platform.
CTA chest:
1. No CTA evidence for an acute pulmonary thromboembolism.
2. Bilateral groundglass opacities favored to be secondary to hypoventilatory changes and atelectasis.
3. 8 mm solid pulmonary nodule in the superior segment of the left lower lobe partially obscured by atelectasis. Recommend a follow-up chest CT in 6-12 months per Fleischner Society guidelines.
Echo: Severely reduced left ventricular systolic function. EF 25-30%. Global hypokinesis. Aortic sclerosis without stenosis. No prior study available for comparison.
Acute hypoxic respiratory failure:
-was on 6L [place] O2, now weaned to RA
-proBNP was 3940. Patient was given IV Lasix on admission and became hypotensive.
-had lactic acidosis, now resolved
-COVID/Flu NEG
-CT chest without PE. Notable for B/L GGOs likely due to hypoventilatory changes and atelectasis
Elevated troponin:
-peaked at 1.87
-new LBBB
-Likely acute nonischemic myocardial injury due to sepsis
-echo above
-was on heparin gtt, now off
-cardiology following. As per discussion with cardiology, goal-directed medical therapy only. No cardiac/coronary intervention/ischemic work up is planned at this time.
Acute HFrEF:
-new diagnosis, not in acute exacerbation currently
-Coreg and Jardiance started, further GDMT to added after discharge as per cardiology
-wt stable
Possible/likely severe sepsis due to possible/likely UTI:
-minimal leukocytosis of 11.4 on admission
-afebrile throughout hospitalization
-Prior procal was 8.92, now 3.02
-UCx with strep agalactiae and lactobacillus (procal POS x 2)
-BCxs NGTD
-pt was on Rocephin/Azithro and has not been transitioned to Amoxicillin through 01/09/24 as per ID
Advanced dementia:
-with agitation/behavioral disturbances
-Likely component of acute delirium also
-given Zyprexa/Risperdone/Ativan for agitation on 12/31/23
-was on Seroquel HS which was stopped with prolonged QTc. Now transitioned to Risperdal, dose increased.
Other problems:
Hypokalemia
Hypothyroidism: cont Levoxyl
h/o colitis/diverticulitis October 2022
DNR/Lovenox
Remains medically cleared for discharge since 01/03/24. Case management aware.
Anticipated Discharge: Today
Subjective/Interval History
-
Date of Service: January 09, 2024
denies pain
Objective Data
-
Vital Signs:
Vital Signs
Temp Pulse Resp BP Pulse Ox
98.2 F 73 16 113/67 92
01/09/24 08:30 01/09/24 08:30 01/09/24 08:30 01/09/24 08:30 01/09/24 08:30
I&O
01/08/24 01/09/24 01/10/24
06:59 06:59 06:59
Intake Total 120 / 120 440 / 440
Output Total 3 / 3
Balance 120 / 120 437 / 437
[2024-01-09] MEDS: RISPERDAL M-TAB (ORALLY DISINTEGRATING) 0.25 MG PO (14:33)
[2024-01-09 15:00] VITALS: BP 119/62
[2024-01-09] MEDS: LOVENOX SC (17:43)
[2024-01-09] MEDS: SYNTHROID 50 MCG PO (21:07)
[2024-01-09 23:14] VITALS: BP 121/71
[2024-01-10] MEDS: RISPERDAL M-TAB (ORALLY DISINTEGRATING) 0.25 MG PO (04:01)
[2024-01-10 06:00] VITALS: BMI 24.7
[2024-01-10 07:24] VITALS: BP 132/66
[2024-01-10] MEDS: JARDIANCE 10 MG PO (08:08)
[2024-01-10] MEDS: COREG 1.5625 MG PO (08:08)
[2024-01-10] MEDS: LOW STRENGTH ASPIRIN 81 MG PO (08:08)
[2024-01-10] MEDS: RISPERDAL M-TAB (ORALLY DISINTEGRATING) 0.5 MG PO (08:09)
[2024-01-10] MEDS: STERILE WATER FOR INJECTION IV (08:10)
[2024-01-10] MEDS: LOVENOX SC (08:10)
--- NOTE | 2024-01-10 11:14 | W.PN.UPDATE ---
Update Note
Progress Note Update
Patient seen at bedside with 1:1, reviewed chart, discussed with RN and Hospitalist. Ms. Katz is pleasantly confused this AM. Some agitation noted in the middle of the night requiring PRN Risperdal with a good response. Hoping to DC 1:1 today if
able. No other issues or concerns at this time.
Impression/plan: Dementia, advanced, with behavior disturbance, superimposed delirium - improving. Continue Risperidone 0.5mg BID with 0.25mg available PRN Q6 hours. Ativan PRN available, not needed in nearly 48 hours.
--- NOTE | 2024-01-10 12:38 | W.PN.HOSP.TC ---
Addendum entered and electronically signed by Juan Miguel Govea MD 01/10/24 15:49:
Son and [id number] updated over the phone
Addendum entered and electronically signed by Juan Miguel Govea MD 01/10/24 15:47:
Spoke with RN, stools are semi formed
Original Note:
Today's Communication/Plan
-
Monitor vitals
Continue risperidone
Discharge today
Continue Coreg, Jardiance
Time of discharge 37-minutes
Assessment / Plan
Assessment / Plan
Gen: continues to remain NAD, Awake and alert
Eyes: continues to remain EOMI, PERRLA, no scleral icterus.
Neck: supple.
CV: RRR, +S1/S2, no m/r/g.
Resp: CTAB, no rales, wheezes, or rhonchi.
Skin: No rashes.
Neuro: continues to remain CN 2-12 intact, non-focal.
Psych: Normal mood and affect.
12/30/23 21:36 Blood/Venous Blood Culture - Final
No Growth - Final Report
12/30/23 21:36 Blood/Venous Blood Culture - Final
No Growth - Final Report
12/30/23 21:36 Urine Urine Culture - Final
Streptococcus agalactiae
Lactobacillus species
12/30/23 21:36 Nasal Swab Influenza Types A & B (SRAVANI) - Final
Negative for Influenza A & B, NAAT
Negative results must be combined with clinical observations
and patient history.
Nucleic Acid Amplification test (NAAT)performed on the
[employer] platform.
CTA chest:
1. No CTA evidence for an acute pulmonary thromboembolism.
2. Bilateral groundglass opacities favored to be secondary to hypoventilatory changes and atelectasis.
3. 8 mm solid pulmonary nodule in the superior segment of the left lower lobe partially obscured by atelectasis. Recommend a follow-up chest CT in 6-12 months per Fleischner Society guidelines.
Echo: Severely reduced left ventricular systolic function. EF 25-30%. Global hypokinesis. Aortic sclerosis without stenosis. No prior study available for comparison.
Acute hypoxic respiratory failure:
-was on 6L NC O2, now weaned to RA
-proBNP was 3940. Patient was given IV Lasix on admission and became hypotensive.
-had lactic acidosis, now resolved
-COVID/Flu NEG
-CT chest without PE. Notable for B/L GGOs likely due to hypoventilatory changes and atelectasis
Elevated troponin:
-peaked at 1.87
-new LBBB
-Likely acute nonischemic myocardial injury due to sepsis
-echo above
-was on heparin gtt, now off
-cardiology following. As per discussion with cardiology, goal-directed medical therapy only. No cardiac/coronary intervention/ischemic work up is planned at this time.
Acute HFrEF:
-new diagnosis, not in acute exacerbation currently
-Coreg and Jardiance started, further GDMT to added after discharge as per cardiology
-wt stable
Cardiology does not think patient need diuretic at this time
Possible/likely severe sepsis due to possible/likely UTI:
-minimal leukocytosis of 11.4 on admission
-afebrile throughout hospitalization
-Prior procal was 8.92, now 3.02
-UCx with strep agalactiae and lactobacillus (procal POS x 2)
-BCxs NGTD
-pt was on Rocephin/Azithro and has not been transitioned to Amoxicillin through 01/09/24 as per ID
Advanced dementia:
-with agitation/behavioral disturbances
-Likely component of acute delirium also
-given Zyprexa/Risperdone/Ativan for agitation on 12/31/23
-was on Seroquel HS which was stopped with prolonged QTc. Now transitioned to Risperdal, dose increased.
Other problems:
Hypokalemia
Hypothyroidism: cont Levoxyl
h/o colitis/diverticulitis October 2022
DNR/Lovenox
Remains medically cleared for discharge since 01/03/24. Case management aware.
Anticipated Discharge: Today
Subjective/Interval History
-
Date of Service: January 10, 2024
denies pain
Objective Data
-
Vital Signs:
Vital Signs
Temp Pulse Resp BP Pulse Ox
98.1 F 71 24 132/66 97
01/10/24 07:24 01/10/24 07:24 01/10/24 07:24 01/10/24 07:24 01/10/24 08:10
I&O
01/09/24 01/10/24 01/11/24
06:59 06:59 06:59
Intake Total 440 / 440 240 / 240
Output Total 3 / 3
Balance 437 / 437 240 / 240
--- NOTE | 2024-01-10 12:43 | W.DCSUMMARY ---
Discharge Summary
Discharge Data
Date of Admission: 12/30/23
Date of Discharge: 01/10/24
-
Pending Results: No
Hospital Course
88-year-old female with past medical history of cognitive impairment due to advanced dementia, anxiety, colitis, hypothyroidism came to the hospital with acute hypoxic respiratory failure which over time improved. CT chest was done which did not
show any signs of pulmonary embolism however did show possible atelectasis. On this hospitalization patient also had elevated troponin with new left bundle branch block for which she was seen by cardiology throughout hospitalization. Initially
patient was started on heparin drip which was later stopped. Echocardiogram was done which showed new onset cardiomyopathy with ejection fraction 25 to 30% with global hypokinesis. Cardiology did not recommend any cardiac/coronary intervention and
wanted to manage this with goal-directed medical therapy. Patient also had mild congestive heart failure however did not require daily diuresis per cardiology recommendation. Patient was started on Coreg and Jardiance. Patient did had severe
sepsis on this hospitalization secondary to urinary tract infection which over time improved with antibiotics. Patient finished a course of antibiotics prior to discharge. Patient hospital course was prolonged with periods of agitation/behavioral
disturbances. Patient was seen by psychiatry. Given her prolonged QTc her Seroquel was stopped and she was started on risperidone. Patient mental status continue to improve on risperidone. She was also evaluated by physical therapy who
recommended SNF. Once patient symptoms continue to improve, she was then discharged to SNF with instructions to follow-up with all her physicians outpatient.
Discharge Plan
-
Patient Disposition: Jail/SNF
Discharge Diagnosis/Procedures: Acute hypoxic respiratory failure
Elevated troponin with new left bundle branch block
New cardiomyopathy
Acute congestive heart failure with reduced ejection fraction
Severe sepsis likely secondary to urinary tract infection
Advanced dementia with agitation/behavioral disturbances
Condition: Good
Diet: As tolerated
Activity: As tolerated
Driving Restrictions: No driving
Bathing Restrictions: None
Instructions: *CBC Heart Failure Instructions
Referrals:
Nicole West NP [Specified Professional Personl] - 01/31/24 2:40 pm (Cardiology follow-up at Dr. Valadez's office. Please call if you need to adjust visit. Thank you.)
Lupillo Mcintosh MD [Family Provider] - in less than 1 week
Prescriptions:
New
acetaminophen 325 mg Tablet
650 mg PO Q4HPRN PRN (Reason: mild pain/MCMANUS/temp> 100.4F) Qty: 1 0RF
carvedilol 3.125 mg Tablet
1.5625 mg PO BID Qty: 0 0RF
aspirin [Children's Aspirin] 81 mg Tablet,Chewable
81 mg PO DAILY Qty: 0 0RF
risperidone 0.5 mg Tablet,Disintegrating
0.5 mg PO BID Qty: 0 0RF
risperidone 0.5 mg Tablet,Disintegrating
0.25 mg PO Q6HPRN PRN (Reason: agitation) Qty: 0 0RF
Jardiance 10 mg Tablet
10 mg PO DAILY Qty: 0 0RF
Continued
levothyroxine 50 MCG tablet
50 mcg PO HS
Discontinued
quetiapine 25 mg tablet
25 mg PO HS
Discharge Orders:
Discharge Patient (As Directed); Ordered 01/10/24
Ordered By: Juan Miguel Govea
Discharge Date and Time
Discharge Date/Time: 01/10/24 15:37
Print Language: SYRIAN
--- NOTE | 2024-01-10 12:51 | CM ---
Addendum entered by Alejandra Duran 01/10/24 13:12:
IMm reviewed with spouse via phone.
patient for transport 3 pm via ambulance transport.
[facility]
Report # [phone]

Original Note:
TC from [facility], they are able to accept patient.
They are aware patient is on a 1:1 due to wondering.
Spoke with son and spouse both in agreement.
Spouse went to tour facility.
Ambulance transport set for 3 pm.
Await report and fax #s.
Plan: [facility] today
--- NOTE | 2024-01-10 14:42 | W.HF.CON ---
Heart Failure
- LV Function
Left ventricular function study result: LV Ejection fraction </= 35%
Ejection Fraction Percentage: 25-30
- ARNI
Patient already on ARNI: No
Heart Failure ARNI Contraindication: Hypotension
- ACEI/ARB
Patient already on ACEI/ARB: No
Heart Failure ACEI/ARB Contraindication: Hypotension
- Beta Sameera
Patient already on Evidence Based Beta Sameera: Yes
- Mineralocorticord Receptor Antagonist
Patient already on MRA: No
Heart Failure MRA Contraindication: Hypotension
- SGLT-2 Inhibitor
Patient already on SGLT-2 Inhibitor: Yes
- NYHA CHF Classification
NYHA CHF Classification Level: Class III - Symptoms w/ min exertion, interferes w/ nml daily activity
- ACC/AHA Stage
ACC/AHA Stage: Stage C: Symptomatic Heart Failure
== END 2024-01-10 15:37 | DRG 871 ==
LOC: 4 WEST ACU 23:15
PROVIDERS: Clinical Nurse Specialist Family Health; Internal Medicine; Nurse Practitioner Family; ADMITTING PHYSICIAN Internal Medicine; ATTENDING PHYSICIAN Internal Medicine; CONSULT PHYSICIAN Internal Medicine; CONSULT PHYSICIAN Psychiatry & Neurology Psychiatry; EMERGENCY PHYSICIAN Emergency Medicine; FAMILY PHYSICIAN Internal Medicine; OTHER PHYSICIAN Internal Medicine Infectious Disease
DX: A40.1 Sepsis due to streptococcus, group B (principal); J96.01 Acute respiratory failure with hypoxia; F03.A11 Unspecified dementia, mild, with agitation; F03.A18 Unspecified dementia, mild, with other behavioral disturbance; N39.0 Urinary tract infection, site not specified; I5A Non-ischemic myocardial injury (non-traumatic); J98.11 Atelectasis; F05 Delirium due to known physiological condition; I50.22 Chronic systolic (congestive) heart failure; R65.20 Severe sepsis without septic shock; I70.0 Atherosclerosis of aorta; R91.1 Solitary pulmonary nodule; E03.9 Hypothyroidism, unspecified; E87.6 Hypokalemia; I44.7 Left bundle-branch block, unspecified; I11.0 Hypertensive heart disease with heart failure; Z66 Do not resuscitate; Z79.890 Hormone replacement therapy; Z87.891 Personal history of nicotine dependence; Z87.19 Personal history of other diseases of the digestive system; Z11.52 Encounter for screening for COVID-19; Z87.440 Personal history of urinary (tract) infections
CPT/HCPCS: 51701; 51798; 71045; 71275; 80048; 80053; 80061; 81003; 81015; 83605; 83880; 84132; 84145; 84443; 84484; 85025; 85027; 85730; 87040; 87077; 87086; 87147; 87502; 87811; 92610; 93005; 93306; 94760; 96361; 96365; 96366; 96367; 96375; 97116; 97163; 97167; 97530; 99285; J2358; Q9967

== ENCOUNTER → 2024-10-26 12:06 | Outpatient (REF) | payer MEDICARE, SELFPAY ==
[2024-10-26 16:30] LABS: Urine Albumin Negative (Neg - Trace); Urine Bilirubin Negative (Negative); Urine Character Clear (Clear); Urine Color Yellow; Urine Glucose Negative (Negative); Urine Ketone Negative (Negative); Urine Leukocyte Negative (Negative); Urine Nitrite Negative (Negative); Urine Occult Blood Negative (Negative); Urine Specific Gravity 1.015 (<1.030); Urine Urobilinogen Negative (Neg - 1+)
== END ==
LOC: CLAB 12:06
PROVIDERS: ATTENDING PHYSICIAN Internal Medicine
DX: R39.9 Unspecified symptoms and signs involving the genitourinary system (principal)
CPT/HCPCS: 81003; 87086

== ENCOUNTER → 2024-12-26 11:29 | Outpatient (REF) | payer MEDICARE, SELFPAY ==
[2024-12-26 12:30] LABS: % Basophils 0.9 % (0-2); % Eosinophils 2.9 % (0-6); % Immature Granulocytes 0.2 % (0-0.5); % Lymphocytes 24.3 % (20.5-51.1); % Monocytes 7.6 % (1.7-9.3); % Neutrophils 64.1 % (42.2-75.2); Absolute Basophils 0.1 10^3/uL (0-0.2); Absolute Eosinophils 0.2 10^3/uL (0-0.7); Absolute Lymphocytes 1.6 10^3/uL (1.2-3.4); Absolute Monocytes 0.5 10^3/uL (0.1-0.6); Absolute Neutrophils 4.2 10^3/uL (1.4-6.5); Hematocrit 47.1 % (37.0-47.0); Hemoglobin 15.5 g/dL (12.0-16.0); Mean Corp Hgb Conc. 32.9 g/dL (33.0-37.0); Mean Corpuscular Hgb 28.8 pg (27.0-31.0); Mean Corpuscular Volume 87.5 fL (81.0-99.0); Mean Platelet Volume 10.5 fL (7.4-10.4); Nucleated Red Blood Cells % 0 %; Platelet Count 213 10^3/uL (130-400); Red Blood Cell Count 5.38 10^6/uL (4.20-5.40); Red Cell Dist. Width 14.3 % (11.5-14.5); White Blood Cell Count 6.5 10^3/uL (4.8-10.8)
[2024-12-26 12:51] LABS: INR 0.97; PT 13.4 Sec (11.4-14.6)
[2024-12-26 12:52] LABS: APTT 26.9 Sec (23.4-35.0)
[2024-12-26 12:59] LABS: ALT (SGPT) 16 U/L (0-35); AST (SGOT) 26 U/L (14-36); Albumin 4.5 g/dl (3.5-5.0); Alkaline Phosphatase 90 U/L (38-126); Blood Urea Nitrogen 16 mg/dl (7-17); Calcium 9.5 mg/dl (8.4-10.2); Carbon Dioxide 29 mmol/L (22-30); Chloride 104 mmol/L (98-107); Glucose 109 mg/dl (70-99); Potassium 4.6 mmol/L (3.5-5.1); Sodium 142 mmol/L (135-145); Total Bilirubin 0.8 mg/dl (0.2-1.3); eGFR 54.53
== END ==
LOC: REG 11:29
PROVIDERS: ATTENDING PHYSICIAN Internal Medicine
DX: F03.90 Unspecified dementia, unspecified severity, without behavioral disturbance, psychotic disturbance, mood disturbance, and anxiety (principal); K92.2 Gastrointestinal hemorrhage, unspecified
CPT/HCPCS: 36415; 80053; 85025; 85610; 85730

== ENCOUNTER 2025-08-04 09:25 | Emergency (ER) | payer MEDICARE, SELFPAY ==
[2025-08-04 09:32] VITALS: BP 127/66
--- NOTE | 2025-08-04 09:51 | ED.GENMED ---
History of Present Illness
General
Chief Complaint: Back Pain
Source: patient, records, spouse, ambulance crew and senior living
Exam Limitations: dementia
Time Seen by Provider: 08/04/25 09:39
Nursing documentation reviewed up to this point in time: agreed with
History of Present Illness
History of Present Illness:
89-year-old female with a past medical history as noted significant for dementia presents from [facility] for evaluation after an unwitnessed fall. Patient is a very poor historian cannot provide any meaningful history about fall. She is
able to respond appropriately to questions she says that she is not in any pain and does not want to be here here in the emergency room. She specifically denies headache, neck pain, back pain, chest pain, abdominal pain or any pain in the
extremities. She cannot remember falling. According to EMS report staff at [facility] found patient on the floor this morning and patient was apparently complaining of back pain earlier. Sent to the ER for evaluation. Review of her medication list
shows that she takes a baby aspirin but no other blood thinners. Discussed with patient's : He says that she has a longstanding history of pain in her left low back and left hip for over 10 years. He says that typically when she complains
about it he massages it for a minute or 2 and it goes away. He says that for patient to complain of some mild back pain is not unusual and he does not believe that she sustained any injury from fall today especially if she is not complaining-�'she
does not like pain and she will tell me if something hurts.'
Past History
Past History
ED Past Medical History: HTN, Hypothyroidism and Other (mild dementia)
ED Past Surgical History: Cholecystectomy, Gynecological (Hysterectomy) and Tonsilectomy
Social History
Tobacco: Non-smoker
Personal:
Living: with family
Review of Systems
Review of Systems
Unable to obtain full review of systems at this time due to: dementia
Respiratory: Denies trouble breathing
Cardiac: Denies chest pain
ABD/GI: Denies abdominal pain or nausea
Musculoskeletal: Denies joint pain, neck pain or back pain
Neurological: Denies dizzy or headache
Phy Exam
Physical Exam
Physical Exam:
General: Awake, alert, oriented x1; no acute distress
Head: Normocephalic, atraumatic
Eyes: Conjunctiva normal, pupils equal round and reactive to light bilaterally
Throat: Airway intact, handling secretions
Neck: Trachea midline, no cervical spine tenderness, moving neck freely without pain
Back: No signs of trauma to the back or flank and no tenderness in the thoracic or lumbar spine or in the posterior ribs
Lungs: Clear to auscultation bilaterally, no wheezing, rales, rhonchi
Heart: Regular rate and rhythm, no murmurs, gallops, or rubs; no anterior chest wall tenderness
Abd: Soft, non distended, nontender
Neuro: Grossly intact moving all extremities without deficit
Skin: Warm and dry with no overt signs of trauma
Extremities: Atraumatic, nontender, allows for passive range of motion in all large joints of the upper and lower extremities without pain; distal extremities are warm and well-perfused
Scores
Heart Failure Risk
Heart Failure Risk Score: Not Applicable
Heart Score for Chest Pain Patients
STEMI patient?: Not applicable
Withdrawal Assessment of Alcohol
Withdrawal Assessment Completed?: Not applicable
Course
Vital Signs
Initial and Last Documented VS:
Initial Vital Signs
BP Pulse Ox
127/66 95
08/04/25 09:32 08/04/25 09:32
Last Documented Vital Signs
Temp Pulse Resp BP Pulse Ox
36.6 C 65 16 127/66 94
08/04/25 10:07 08/04/25 10:07 08/04/25 10:07 08/04/25 09:32 08/04/25 10:07
MDM/Problems Addressed
MDM/Problems Addressed:
89-year-old female with history of dementia presents after being found down this morning at senior living�she cannot recall fall is a poor historian due to history of dementia. She denies being in any pain and says she does not want to be here. She
has no overt signs of trauma on physical exam. It sounds like she was complaining of some back pain earlier but says that this is not unusual for her this has been an ongoing intermittent issue for 10+ years. She seems to be pain-free now
she has no reproducible tenderness in her back or anywhere else on physical exam. No clear indication for imaging at this point in time�considered need for CT head given her age but there is no report of head strike, she is at her baseline mental
status, she has no external signs of head trauma. She is quite adamant that she does not want anything done here and would most certainly require sedation to facilitate imaging; I think the risks of this would outweigh any benefit with very low
clinical suspicion of any serious traumatic injuries. [facility] and patient is certainly happy with this plan.
Chronic conditions affecting care:
Dementia
*Pulse Oximetry
SaO2: 95
Oxygen Mode of Delivery: Room air
Patient hypoxic: no (95%)
*Critical Care Note
Total Time (30-74mins, 75-104mins- exclusive of procedures): Not Applicable
Data Reviewed
Source: patient, records, spouse, ambulance crew and senior living
Further Testing Considered But Not Given:
Considered need for CT head, CT cervical spine, x-rays of the back or hip
Patient Management
Discussion with other providers: skilled nursing staff (Discussed directly with senior living staff)
ED Attending Note
-
Portions of this chart may have been created with voice recognition software.� Occasional wrong word or��sound alike� substitutions may have occurred due to the inherent limitations of voice recognition software.
Discharge Plan
Departure
Patient Disposition: Home (Routine Discharge)
Date of Disposition: 08/04/25
Time of Disposition: 10:36
Patient with high blood pressure during this ER visit?: No
Discharge Problem:
Fall
Instructions: Fall Prevention for Older Adults
Prescriptions:
No Action
levothyroxine 50 MCG tablet
50 mcg PO HS
acetaminophen 325 mg Tablet
650 mg PO Q4HPRN PRN (Reason: mild pain/MCMANUS/temp> 100.4F) Qty: 1 0RF
carvedilol 3.125 mg Tablet
1.5625 mg PO BID Qty: 0 0RF
aspirin [Children's Aspirin] 81 mg Tablet,Chewable
81 mg PO DAILY Qty: 0 0RF
risperidone 0.5 mg Tablet,Disintegrating
0.5 mg PO BID Qty: 0 0RF
risperidone 0.5 mg Tablet,Disintegrating
0.25 mg PO Q6HPRN PRN (Reason: agitation) Qty: 0 0RF
Jardiance 10 mg Tablet
10 mg PO DAILY Qty: 0 0RF
Referrals:
UNKNOWN - PT DOES,NOT KNOW [Family Provider]
Activity Restrictions/Additional Instructions:
Thank you for visiting the Emergency Department at [facility].
1. Please schedule a follow up appointment as directed. Call first thing tomorrow morning to make an appointment.
2. If indicated, please take your medications as instructed and indicated on discharge paperwork.
3. If any of your symptoms do not improve, or persist, or become more severe within 6-12 hours, please return to the emergency department for further care.
4. Please return to the emergency department if you develop a headache, neck pain/stiffness, fever greater than 100.4F, chest pain, shortness of breath, persistent nausea, vomiting, slurred speech, difficulty walking, numbness/tingling, weakness,
signs of infection or any other symptoms that are worrisome to you.
Please call [phone] if you have any questions.
Interventions
Interventions:
*Risk Screen - Suicide Last Done: 08/04/25 09:32
*General Assessment Last Done: 08/04/25 09:32
Discharge Date and Time
Print Language: POLISH
[2025-08-04 12:47] VITALS: BP 101/59
== END 2025-08-04 13:35 | disposition home or self-care (01) ==
LOC: EMR 09:25
PROVIDERS: EMERGENCY PHYSICIAN Emergency Medicine
DX: M54.9 Dorsalgia, unspecified (principal); W19.XXXA Unspecified fall, initial encounter; I10 Essential (primary) hypertension; E03.9 Hypothyroidism, unspecified; F03.A0 Unspecified dementia, mild, without behavioral disturbance, psychotic disturbance, mood disturbance, and anxiety
CPT/HCPCS: 99282